=== PATIENT | male | born 1950 | race Caucasian/White ===

== ENCOUNTER → 2019-04-18 | Outpatient (CLI) | payer MEDICARE, BC, OTHER ==
[2019-04-18 17:02] LABS: Basophils # (A) 0.1 k/uL (0-0.2); Basophils % (A) 1 %; Eosinophils # (A) 0.8 k/uL (0-0.7); Eosinophils % (A) 7 %; HCT 34.5 % (39.0-53.0); HGB 11.1 gm/dL (13.0-17.5); Lymphocytes # (A) 1.6 k/uL (1.0-4.8); Lymphocytes % (A) 13 %; MCH 28.8 pg (25.0-35.0); MCHC 32.3 g/dL (31.0-37.0); MCV 89.3 fL (80.0-100.0); Monocytes # (A) 0.7 k/uL (0-1.0); Monocytes % (A) 5 %; Neutrophils # (A) 8.9 k/uL (1.3-7.7); Neutrophils % (A) 73 %; Platelet Count 429 k/uL (150-450); RBC 3.86 m/uL (4.30-5.90); RDW 14.7 % (11.5-15.5); WBC 12.3 k/uL (3.8-10.6)
[2019-04-18 17:08] LABS: African American GFR (CKD) >90 (>60 ml/min/1.73 sqM); Anion Gap 8 mmol/L; Blood Urea Nitrogen 23 mg/dL (9-20); Carbon Dioxide 29 mmol/L (22-30); Chloride 102 mmol/L (98-107); Potassium 4.9 mmol/L (3.5-5.1); Sodium 139 mmol/L (137-145)
== END | disposition home or self-care (01) ==
LOC: LABPAT 16:37
PROVIDERS: ATTEND Surgery
DX: Z01.812 Encounter for preprocedural laboratory examination (principal); I96 Gangrene, not elsewhere classified
CPT/HCPCS: 80051; 82565; 84520; 85025

== ENCOUNTER 2019-04-26 18:35 | Inpatient (IN) | payer MEDICARE, BC, OTHER ==
[2019-04-26] MEDS ORDERED: IPRATROPIUM-ALBUTEROL 3 ML NEB INHALATION STA (19:27)
[2019-04-26] MEDS ORDERED: SODIUM CHLORIDE 0.9% 1,000 ML IV STA (19:27)
[2019-04-26 19:37] LABS: Basophils # (A) 0.1 k/uL (0-0.2); Basophils % (A) 0 %; Eosinophils # (A) 0.5 k/uL (0-0.7); Eosinophils % (A) 4 %; HCT 32.8 % (39.0-53.0); HGB 11.2 gm/dL (13.0-17.5); Lymphocytes # (A) 1.4 k/uL (1.0-4.8); Lymphocytes % (A) 10 %; MCV 88.2 fL (80.0-100.0); Mean Platelet Volume 6.7; Monocytes # (A) 0.7 k/uL (0-1.0); Monocytes % (A) 6 %; Neutrophils # (A) 10.3 k/uL (1.3-7.7); Neutrophils % (A) 78 %; Platelet Count 504 k/uL (150-450); RBC 3.72 m/uL (4.30-5.90); RDW 14.1 % (11.5-15.5); WBC 13.2 k/uL (3.8-10.6)
[2019-04-26] MEDS ORDERED: ONDANSETRON 4 MG/2 ML VIAL IVP STA (19:37)
[2019-04-26] MEDS ORDERED: ONDANSETRON 4 MG/2 ML VIAL IVP PRN (19:37)
[2019-04-26] MEDS ORDERED: MORPHINE SULFATE 4 MG/ML SYRINGE IVP STA (19:37)
[2019-04-26] MEDS ORDERED: VANCOMYCIN IV PER PHARMACY 1 EACH MISC MISCELLANE PRN (19:37)
[2019-04-26] MEDS ORDERED: ASPIRIN 81 MG PO STA (19:38)
[2019-04-26] MEDS ORDERED: NITROGLYCERIN SL TABS 0.4 MG TAB SUBLINGUAL PRN (19:38)
[2019-04-26 19:46] LABS: ALT 24 U/L (21-72); AST 24 U/L (17-59); African American GFR (CKD) >90 (>60 ml/min/1.73 sqM); Albumin 3.8 g/dL (3.5-5.0); Alkaline Phosphatase 131 U/L (38-126); Anion Gap 12 mmol/L; Blood Urea Nitrogen 22 mg/dL (9-20); Calcium 9.1 mg/dL (8.4-10.2); Carbon Dioxide 27 mmol/L (22-30); Chloride 99 mmol/L (98-107); Glucose 108 mg/dL (74-99); Magnesium 2.1 mg/dL (1.6-2.3); Potassium 4.8 mmol/L (3.5-5.1); Sodium 138 mmol/L (137-145); Total Bilirubin 0.2 mg/dL (0.2-1.3); Total Protein 7.2 g/dL (6.3-8.2)
[2019-04-26] MEDS ORDERED: VANCOMYCIN 1,250 MG in SODIUM CHLORIDE 0.9% 250 ML IVPB STA (19:52)
--- NOTE | 2019-04-26 19:55 | XR ---
EXAMINATION TYPE: XR chest 2V DATE OF EXAM: 04/26/2019 COMPARISON: NONE HISTORY: Short of breath TECHNIQUE: Frontal and lateral views of the chest are obtained. FINDINGS: Heart is normal. Lungs are clear of consolidation. There are no hilar masses. Phrenic angl es are clear. There are chest leads. Thoracic aorta is atheromatous. IMPRESSION: No active cardiopulmonary disease. Normal heart.
--- NOTE | 2019-04-26 19:57 | ED ---
SOB HPI - General Chief Complaint: Shortness of Breath Stated Complaint: Diff Breathing Time Seen by Provider: 04/26/19 19:08 Source: patient, RN notes reviewed, old records reviewed Mode of arrival: wheelchair Limitations: physical limitation - History of Present Illness Initial Comments: This is a 68-year-old male the ER for evaluation ER for evaluation regards to multiple complaints, he is of some mild shortness of breath but that is improved with breathing treatment, patient has by EMS for right lower extremity pain, patient is significant right lower extremity wound history of known peripheral arterial disease and infection. Patient not on anorexia. Patient to follow up after surgery for amputation. Patient was scheduled for surgery yesterday. Patient was unable to cardiac. Now presenting for evaluation and possible further evaluation and treatment of right lower extremity MD Complaint: shortness of breath (Also c/o RLE pain, gangrene) -: week(s) Severity: mild Severity scale (1-10): 3 Quality: aching Consistency: constant Improves With: rest Worsens With: exertion, movement Known History Of: COPD Associated Symptoms: cough - Related Data Home Medications Medication Instructions Recorded Confirmed Allopurinol [Zyloprim] 100 mg PO DAILY 04/19/19 04/26/19 Atorvastatin [Lipitor] 40 mg PO HS 04/19/19 04/26/19 Folic Acid 1 mg PO DAILY 04/19/19 04/26/19 Labetalol [Trandate] 200 mg PO BID 04/19/19 04/26/19 Lisinopril [Zestril] 20 mg PO DAILY 04/19/19 04/26/19 Multivit-Min/FA/Lycopen/Lutein 1 tab PO DAILY 04/19/19 04/26/19 [Centrum Silver Men Tablet] NIFEdipine [NIFEdipine ER] 30 mg PO DAILY 04/19/19 04/26/19 Nystatin 100,000Unit/gm Cream 1 applic TOPICAL BID PRN 04/19/19 04/26/19 [Mycostatin Cream] Bacitracin Oint 1 applic TOPICAL DAILY 04/26/19 04/26/19 Triamcinolone 0.1% Ointment 1 applic TOPICAL BID 04/26/19 04/26/19 [Kenalog 0.1% Ointment] Allergies Allergy/AdvReac Type Severity Reaction Status Date / Time Penicillins AdvReac Diarrhea Verified 04/26/19 20:03 Review of Systems ROS Statement: Those systems with pertinent positive or pertinent negative responses have been documented in the HPI. ROS Other: All systems not noted in ROS Statement are negative. Past Medical History Past Medical History: CVA/TIA, Hypertension Additional Past Medical History / Comment(s): pvd, gout History of Any Multi-Drug Resistant Organisms: None Reported Past Surgical History: Heart Catheterization Additional Past Surgical History / Comment(s): rt aka, bunionectomy Past Psychological History: No Psychological Hx Reported Smoking Status: Former smoker Past Alcohol Use History: None Reported Past Drug Use History: None Reported General Exam Limitations: physical limitation General appearance: alert, in no apparent distress Head exam: Present: atraumatic, normocephalic, normal inspection Eye exam: Present: normal appearance, PERRL, EOMI. Absent: scleral icterus, conjunctival injection, periorbital swelling ENT exam: Present: normal exam, mucous membranes moist Neck exam: Present: normal inspection. Absent: tenderness, meningismus, lymphadenopathy Respiratory exam: Present: wheezes, accessory muscle use, decreased breath sounds, prolonged expiratory. Absent: respiratory distress, rales, rhonchi, stridor Cardiovascular Exam: Present: regular rate, normal rhythm, normal heart sounds. Absent: systolic murmur, diastolic murmur, rubs, gallop, clicks GI/Abdominal exam: Present: soft, normal bowel sounds. Absent: distended, tenderness, guarding, rebound, rigid Extremities exam: Present: normal inspection, full ROM, normal capillary refill, other (Lower extremity gangrene symptoms significant necrosis secondary to PAD of right foot). Absent: tenderness, pedal edema, joint swelling, calf tenderness Back exam: Present: normal inspection Neurological exam: Present: alert, oriented X3, CN II-XII intact Psychiatric exam: Present: normal affect, normal mood Skin exam: Present: warm, dry, intact, normal color. Absent: rash Course Vital Signs 04/26/19 04/26/19 04/26/19 18:36 19:21 19:57 Temperature 97.6 F Pulse Rate 66 85 Respiratory 20 18 16 Rate Blood Pressure 103/62 O2 Sat by Pulse 95 Oximetry 04/26/19 20:10 Temperature Pulse Rate 87 Respiratory 18 Rate Blood Pressure O2 Sat by Pulse Oximetry - Reevaluation(s) Reevaluation #1: 04/26/19 19:54 Medical record reviewed - Consultations Consultation #1: Spoke with Dr. Kumar rabago for admission Consultation #2: Spoke with Dr. Bojorquez aware of patient being in ER and admission for possible Sx, cardiac clearance Medical Decision Making - Medical Decision Making 68 male the ER for evaluation presented today for evaluation of right lower extremity gangrene and infection, not an antibiotics, will place her back on antibiotics, a patient also having significant shortness of breath given breathing treatments shortness of breath is improved, patient still feeling weak - Lab Data Result diagrams: 04/26/19 19:16 04/26/19 19:16 Lab Results 04/26/19 04/26/19 04/26/19 Range/Units 19:16 19:16 19:16 WBC 13.2 H (3.8-10.6) k/uL RBC 3.72 L (4.30-5.90) m/uL Hgb 11.2 L (13.0-17.5) gm/dL Hct 32.8 L (39.0-53.0) % MCV 88.2 (80.0-100.0) fL MCH 30.0 (25.0-35.0) pg MCHC 34.0 (31.0-37.0) g/dL RDW 14.1 (11.5-15.5) % Plt Count 504 H (150-450) k/uL Neutrophils % 78 % Lymphocytes % 10 % Monocytes % 6 % Eosinophils % 4 % Basophils % 0 % Neutrophils # 10.3 H (1.3-7.7) k/uL Lymphocytes # 1.4 (1.0-4.8) k/uL Monocytes # 0.7 (0-1.0) k/uL Eosinophils # 0.5 (0-0.7) k/uL Basophils # 0.1 (0-0.2) k/uL Sodium 138 (137-145) mmol/L Potassium 4.8 (3.5-5.1) mmol/L Chloride 99 (98-107) mmol/L Carbon Dioxide 27 (22-30) mmol/L Anion Gap 12 mmol/L BUN 22 H (9-20) mg/dL Creatinine 0.98 (0.66-1.25) mg/dL Est GFR (CKD-EPI)AfAm >90 (>60 ml/min/1.73 sqM) Est GFR (CKD-EPI)NonAf 79 (>60 ml/min/1.73 sqM) Glucose 108 H (74-99) mg/dL Calcium 9.1 (8.4-10.2) mg/dL Magnesium 2.1 (1.6-2.3) mg/dL Total Bilirubin 0.2 (0.2-1.3) mg/dL AST 24 (17-59) U/L ALT 24 (21-72) U/L Alkaline Phosphatase 131 H (38-126) U/L Troponin I (0.000-0.034) ng/mL NT-Pro-B Natriuret Pep 359 pg/mL Total Protein 7.2 (6.3-8.2) g/dL Albumin 3.8 (3.5-5.0) g/dL 04/26/19 Range/Units 19:16 WBC (3.8-10.6) k/uL RBC (4.30-5.90) m/uL Hgb (13.0-17.5) gm/dL Hct (39.0-53.0) % MCV (80.0-100.0) fL MCH (25.0-35.0) pg MCHC (31.0-37.0) g/dL RDW (11.5-15.5) % Plt Count (150-450) k/uL Neutrophils % % Lymphocytes % % Monocytes % % Eosinophils % % Basophils % % Neutrophils # (1.3-7.7) k/uL Lymphocytes # (1.0-4.8) k/uL Monocytes # (0-1.0) k/uL Eosinophils # (0-0.7) k/uL Basophils # (0-0.2) k/uL Sodium (137-145) mmol/L Potassium (3.5-5.1) mmol/L Chloride (98-107) mmol/L Carbon Dioxide (22-30) mmol/L Anion Gap mmol/L BUN (9-20) mg/dL Creatinine (0.66-1.25) mg/dL Est GFR (CKD-EPI)AfAm (>60 ml/min/1.73 sqM) Est GFR (CKD-EPI)NonAf (>60 ml/min/1.73 sqM) Glucose (74-99) mg/dL Calcium (8.4-10.2) mg/dL Magnesium (1.6-2.3) mg/dL Total Bilirubin (0.2-1.3) mg/dL AST (17-59) U/L ALT (21-72) U/L Alkaline Phosphatase (38-126) U/L Troponin I <0.012 (0.000-0.034) ng/mL NT-Pro-B Natriuret Pep pg/mL Total Protein (6.3-8.2) g/dL Albumin (3.5-5.0) g/dL Disposition Clinical Impression: Acute exacerbation of chronic obstructive pulmonary disease, 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
--- NOTE | 2019-04-26 20:02 | XR ---
EXAMINATION TYPE: XR foot complete RT DATE OF EXAM: 04/26/2019 COMPARISON: NONE HISTORY: Pain and swelling TECHNIQUE: 3 views FINDINGS: There is previous surgery at the first metatarsal head. I see no fracture nor dislocation. There is flexion deformity of the second toe. There are no erosions. I see no focal bone destruction. IMPRESSION: Flexion deformity. Previous surgery. No sign of osteomyelitis.
[2019-04-26] MEDS: IPRATROPIUM-ALBUTEROL 3 ML NEB INHALATION SCH (20:25)
[2019-04-26] MEDS: SODIUM CHLORIDE 0.9% 1,000 ML IV SCH (20:30)
[2019-04-26 20:46] LABS: INR 0.9 (<1.2); Partial Thromboplastin Time 29.4 sec (22.0-30.0); Prothrombin Time 9.6 sec (9.0-12.0)
[2019-04-27] MEDS: IPRATROPIUM-ALBUTEROL 3 ML NEB INHALATION SCH ×3 (08:16→20:20)
[2019-04-27] MEDS: VANCOMYCIN 1,250 MG in SODIUM CHLORIDE 0.9% 250 ML IVPB SCH ×2 (09:15→20:05)
[2019-04-27] MEDS: ASPIRIN 325 MG TAB PO SCH (09:15)
[2019-04-27] MEDS: ENOXAPARIN 40 MG/0.4 ML SYRINGE SQ SCH (09:16)
[2019-04-27] MEDS: SODIUM CHLORIDE 0.9% 1,000 ML IV SCH ×2 (09:16)
[2019-04-27] MEDS: NIFEdipine XL 30 MG TAB.ER.24 PO SCH (11:33)
[2019-04-27] MEDS: LABETALOL 200 MG TAB PO SCH ×2 (11:33→21:12)
[2019-04-27] MEDS: LISINOPRIL 20 MG TAB PO SCH (11:33)
--- NOTE | 2019-04-27 12:15 | P.HPIM ---
History of Present Illness H&P Date: 04/27/19 Chief Complaint: Shortness of breath 68-year-old male the ER for evaluation ER for evaluation regards to multiple complaints, he is of some mild shortness of breath but that is improved with breathing treatment, patient has by EMS for right lower extremity pain, patient is significant right lower extremity wound history of known peripheral arterial disease and infection. Patient not on anorexia. Patient to follow up after surgery for amputation. Patient was scheduled for surgery yesterday. Patient was unable to cardiac. Now presenting for evaluation and possible further evaluation and treatment of right lower extremity Workup in ED was significant for elevated white blood count of 13.2; slight elevation in BUN of 22 with normal creatinine; troponin is negative with a BNP of 359 Patient is admitted to hospital with infection and gangrene of right lower extremity and acute exacerbation of COPD Review of Systems Constitutional: Denies chills, Denies fever Eyes: denies blurred vision, denies loss of vision Ears, nose, mouth and throat: Denies epistaxis Cardiovascular: Reports shortness of breath, Denies chest pain Respiratory: Denies cough with sputum Gastrointestinal: Denies abdominal pain, Denies nausea, Denies vomiting Genitourinary: Denies dysuria, Denies hematuria Musculoskeletal: Denies gait dysfunction Integumentary: Denies change in hair/nails, Denies darkening of skin Neurological: Denies ataxia, Denies confusion, Denies double vision Past Medical History Past Medical History: CVA/TIA, Hypertension Additional Past Medical History / Comment(s): pvd, gout History of Any Multi-Drug Resistant Organisms: None Reported Past Surgical History: Heart Catheterization Additional Past Surgical History / Comment(s): left aka, right bunionectomy Past Anesthesia/Blood Transfusion Reactions: No Reported Reaction Past Psychological History: No Psychological Hx Reported Smoking Status: Former smoker Past Alcohol Use History: None Reported Past Drug Use History: None Reported - Past Family History Father Family Medical History: Cancer Additional Family Medical History / Comment(s): colon CA Medications and Allergies Home Medications Medication Instructions Recorded Confirmed Type Allopurinol [Zyloprim] 100 mg PO DAILY 04/19/19 04/26/19 History Atorvastatin [Lipitor] 40 mg PO HS 04/19/19 04/26/19 History Folic Acid 1 mg PO DAILY 04/19/19 04/26/19 History Labetalol [Trandate] 200 mg PO BID 04/19/19 04/26/19 History Lisinopril [Zestril] 20 mg PO DAILY 04/19/19 04/26/19 History Multivit-Min/FA/Lycopen/Lutein 1 tab PO DAILY 04/19/19 04/26/19 History [Centrum Silver Men Tablet] NIFEdipine [NIFEdipine ER] 30 mg PO DAILY 04/19/19 04/26/19 History Nystatin 100,000Unit/gm Cream 1 applic TOPICAL BID PRN 04/19/19 04/26/19 History [Mycostatin Cream] Bacitracin Oint 1 applic TOPICAL DAILY 04/26/19 04/26/19 History Triamcinolone 0.1% Ointment 1 applic TOPICAL BID 04/26/19 04/26/19 History [Kenalog 0.1% Ointment] Allergies Allergy/AdvReac Type Severity Reaction Status Date / Time Penicillins AdvReac Diarrhea Verified 04/26/19 20:03 Physical Exam Vitals: Vital Signs Temp Pulse Pulse Pulse Resp BP BP 04/27/19 05:00 97.9 F 102 H 18 129/75 04/27/19 00:00 20 04/26/19 22:00 97.5 F L 91 20 96/65 04/26/19 21:30 84 18 112/76 04/26/19 20:34 85 18 126/69 04/26/19 20:10 87 18 04/26/19 19:57 85 16 04/26/19 19:21 18 04/26/19 18:36 97.6 F 66 20 103/62 Pulse Ox 04/27/19 05:00 95 04/27/19 00:00 04/26/19 22:00 98 04/26/19 21:30 97 04/26/19 20:34 97 04/26/19 20:10 04/26/19 19:57 04/26/19 19:21 04/26/19 18:36 95 Intake and Output 04/26/19 04/27/19 04/27/19 22:59 06:59 14:59 Intake Total 650 Output Total 1475 Balance -825 Intake: Intake, IV Titration 650 Amount Sodium Chloride 0.9% 1, 400 000 ml @ 100 mls/hr IV . Q10H [facility] Rx#:[id number] Vancomycin 1,250 mg In 250 Sodium Chloride 0.9% 250 ml @ 125 mls/hr IVPB ONCE STA Rx#:[id number] Output: Urine 1475 Other: Voiding Method Urinal Weight 55.792 kg Limitations: physical limitation General appearance: alert, in no apparent distress Head exam: Present: atraumatic, normocephalic, normal inspection Eye exam: Present: normal appearance, PERRL, EOMI. Absent: scleral icterus, conjunctival injection, periorbital swelling ENT exam: Present: normal exam, mucous membranes moist Neck exam: Present: normal inspection. Absent: tenderness, meningismus, lymphadenopathy Respiratory exam: Present: wheezes, accessory muscle use, decreased breath sounds, prolonged expiratory. Absent: respiratory distress, rales, rhonchi, stridor Cardiovascular Exam: Present: regular rate, normal rhythm, normal heart sounds. Absent: systolic murmur, diastolic murmur, rubs, gallop, clicks GI/Abdominal exam: Present: soft, normal bowel sounds. Absent: distended, tenderness, guarding, rebound, rigid Extremities exam: Present: normal inspection, full ROM, normal capillary refill, other (Lower extremity gangrene symptoms significant necrosis secondary to PAD of right foot). Absent: tenderness, pedal edema, joint swelling, calf tenderness Back exam: Present: normal inspection Neurological exam: Present: alert, oriented X3, CN II-XII intact Psychiatric exam: Present: normal affect, normal mood Skin exam: Present: warm, dry, intact, normal color. Absent: rash Results CBC & Chem 7: 04/26/19 19:16 04/26/19 19:16 Labs: Abnormal Lab Results - Last 24 Hours (Table) 04/26/19 04/26/19 Range/Units 19:16 19:16 WBC 13.2 H (3.8-10.6) k/uL RBC 3.72 L (4.30-5.90) m/uL Hgb 11.2 L (13.0-17.5) gm/dL Hct 32.8 L (39.0-53.0) % Plt Count 504 H (150-450) k/uL Neutrophils # 10.3 H (1.3-7.7) k/uL BUN 22 H (9-20) mg/dL Glucose 108 H (74-99) mg/dL Alkaline Phosphatase 131 H (38-126) U/L Thrombosis Risk Factor Assmnt - Choose All That Apply Any of the Below Risk Factors Present?: No Other Risk Factors: Yes Each Risk Factor Represents 2 Points: Age 61-74 years, Major surgery Thrombosis Risk Factor Assessment Total Risk Factor Score: 4 Thrombosis Risk Factor Assessment Level: Moderate Risk Assessment and Plan Assessment: 1. Infection/gangrene right lower extremity - Patient is started on IV Rocephin and vancomycin from ED; we will continue with current antibiotic therapy - Consult vascular surgery for further recommendations - Cardiology is consulted for cardiac clearance for pending surgery 2. Acute exacerbation COPD - DuoNeb nebulizer treatments 3 times a day and when necessary - Prednisone 40 mg by mouth twice a day 3. Mild renal insufficiency; slow IV fluid hydration in form of normal saline at a rate of 100 mL an hour; monitor strict CAIO's, daily weights, renal function and electrolytes; avoid nephrotoxins and hypotension 4. Hypertension; continue home dose of labetalol 200 mg twice a day and lisinopril 20 mg daily; Procardia XL 30 mg daily 5. Hyperlipidemia; atorvastatin 40 mg by mouth daily at bedtime 6. DVT prophylaxis; subcu Lovenox CODE STATUS; full code Time with Patient: Greater than 30
--- NOTE | 2019-04-27 12:24 | P.CRDCN ---
History of Present Illness Consult date: 04/27/19 History of present illness: This is a 68-year-old gentleman with history of of hypertension, COPD, and peripheral vascular disease who was admitted through the emergency room with complaints of increasing shortness of breath and also pain and ulceration of the right lower extremity. This patient has severe peripheral vascular disease and was seen in our office a few months ago. Patient was sent to vascular surgeon at the time for further evaluation of his severe peripheral vascular disease and gangrene. Apparently, he went for a second opinion to [facility] and was seen by cardiologists. He claimed that he had a stress test and further evaluation by bus and rail operator in [place]. Currently he is under the care of and is waiting to have surgical intervention for the gangrenous right toe. A cardiology clearance is requested. Echo is done in this hospital already. We tried to get information from previous evaluation including report on the stress test. Depending upon the results of those tests, further recommendation will be made. Patient was mildly short of breath on admission but currently seems to be stable. Denies any chest pain. However given his risk factor profile, underlying ischemic heart disease cannot be excluded. Review of Systems As per the chart Past Medical History Past Medical History: CVA/TIA, Hypertension Additional Past Medical History / Comment(s): pvd, gout History of Any Multi-Drug Resistant Organisms: None Reported Past Surgical History: Heart Catheterization Additional Past Surgical History / Comment(s): left aka, right bunionectomy Past Anesthesia/Blood Transfusion Reactions: No Reported Reaction Past Psychological History: No Psychological Hx Reported Smoking Status: Former smoker Past Alcohol Use History: None Reported Past Drug Use History: None Reported - Past Family History Father Family Medical History: Cancer Additional Family Medical History / Comment(s): colon CA Medications and Allergies Home Medications Medication Instructions Recorded Confirmed Type Allopurinol [Zyloprim] 100 mg PO DAILY 04/19/19 04/26/19 History Atorvastatin [Lipitor] 40 mg PO HS 04/19/19 04/26/19 History Folic Acid 1 mg PO DAILY 04/19/19 04/26/19 History Labetalol [Trandate] 200 mg PO BID 04/19/19 04/26/19 History Lisinopril [Zestril] 20 mg PO DAILY 04/19/19 04/26/19 History Multivit-Min/FA/Lycopen/Lutein 1 tab PO DAILY 04/19/19 04/26/19 History [Centrum Silver Men Tablet] NIFEdipine [NIFEdipine ER] 30 mg PO DAILY 04/19/19 04/26/19 History Nystatin 100,000Unit/gm Cream 1 applic TOPICAL BID PRN 04/19/19 04/26/19 History [Mycostatin Cream] Bacitracin Oint 1 applic TOPICAL DAILY 04/26/19 04/26/19 History Triamcinolone 0.1% Ointment 1 applic TOPICAL BID 04/26/19 04/26/19 History [Kenalog 0.1% Ointment] Allergies Allergy/AdvReac Type Severity Reaction Status Date / Time Penicillins AdvReac Diarrhea Verified 04/26/19 20:03 Physical Exam Vitals: Vital Signs Temp Pulse Pulse Pulse Resp BP BP 04/27/19 11:53 82 04/27/19 11:44 86 04/27/19 08:26 84 04/27/19 08:19 88 04/27/19 05:00 97.9 F 102 H 18 129/75 04/27/19 00:00 20 04/26/19 22:00 97.5 F L 91 20 96/65 04/26/19 21:30 84 18 112/76 04/26/19 20:34 85 18 126/69 04/26/19 20:10 87 18 04/26/19 19:57 85 16 04/26/19 19:21 18 04/26/19 18:36 97.6 F 66 20 103/62 Pulse Ox 04/27/19 11:53 04/27/19 11:44 04/27/19 08:26 04/27/19 08:19 04/27/19 05:00 95 04/27/19 00:00 04/26/19 22:00 98 04/26/19 21:30 97 04/26/19 20:34 97 04/26/19 20:10 04/26/19 19:57 04/26/19 19:21 04/26/19 18:36 95 Intake and Output 04/26/19 04/27/19 04/27/19 22:59 06:59 14:59 Intake Total 650 Output Total 1475 Balance -825 Intake: Intake, IV Titration 650 Amount Sodium Chloride 0.9% 1, 400 000 ml @ 100 mls/hr IV . Q10H [facility] Rx#:[id number] Vancomycin 1,250 mg In 250 Sodium Chloride 0.9% 250 ml @ 125 mls/hr IVPB ONCE STA Rx#:[id number] Output: Urine 1475 Other: Voiding Method Urinal Urinal Weight 55.792 kg GENERAL EXAM: Patient is alert and oriented and doesn't appear to be in any acute distress HEENT: Normocephalic. Normal reaction of pupils, equal size, normal range of extraocular motion. No erythema or exudates in the throat. NECK: No masses, no nuchal rigidity. CHEST: No chest wall deformity. LUNGS: Diminished air exchange bilaterally HEART: S1 and S2 normal with no audible mumurs or gallops. Regular rhythm, femorals equal on both sides.. ABDOMEN: No hepatosplenomegaly, normal bowel sounds, no guarding or rigidity. SKIN: No rashes CENTRAL NERVOUS SYSTEM: No focal deficits. EXTREMITIES: Gangrenous right toe. Below-knee amputation on the left side Results 04/26/19 19:16 04/26/19 19:16 Cardiac Enzymes 04/26/19 04/26/19 Range/Units 19:16 19:16 AST 24 (17-59) U/L Troponin I <0.012 (0.000-0.034) ng/mL Coagulation 04/26/19 Range/Units 19:16 PT 9.6 (9.0-12.0) sec APTT 29.4 (22.0-30.0) sec CBC 04/26/19 Range/Units 19:16 WBC 13.2 H (3.8-10.6) k/uL RBC 3.72 L (4.30-5.90) m/uL Hgb 11.2 L (13.0-17.5) gm/dL Hct 32.8 L (39.0-53.0) % Plt Count 504 H (150-450) k/uL Comprehensive Metabolic Panel 04/26/19 Range/Units 19:16 Sodium 138 (137-145) mmol/L Potassium 4.8 (3.5-5.1) mmol/L Chloride 99 (98-107) mmol/L Carbon Dioxide 27 (22-30) mmol/L BUN 22 H (9-20) mg/dL Creatinine 0.98 (0.66-1.25) mg/dL Glucose 108 H (74-99) mg/dL Calcium 9.1 (8.4-10.2) mg/dL AST 24 (17-59) U/L ALT 24 (21-72) U/L Alkaline Phosphatase 131 H (38-126) U/L Total Protein 7.2 (6.3-8.2) g/dL Albumin 3.8 (3.5-5.0) g/dL Current Medications Generic Name Dose Route Start Last Admin Trade Name Freq PRN Reason Stop Dose Admin Albuterol/Ipratropium 3 ml 04/26/19 20:00 04/27/19 11:42 Duoneb 0.5 Mg-3 Mg/3 Ml Soln INHALATION 3 ml RT-TID [facility] Administration Allopurinol 100 mg 04/28/19 09:00 Zyloprim PO DAILY J[facility] Aspirin 325 mg 04/27/19 09:00 04/27/19 09:15 Aspirin PO 325 mg DAILY [facility] Administration Atorvastatin Calcium 40 mg 04/27/19 21:00 Lipitor PO HS [facility] Enoxaparin Sodium 40 mg 04/27/19 09:00 04/27/19 09:16 Lovenox SQ 40 mg DAILY [facility] Administration Folic Acid 1 mg 04/28/19 09:00 Folic Acid PO DAILY [facility] Ceftriaxone Sodium 1 gm/ 50 mls @ 100 mls/hr 04/27/19 09:00 04/27/19 11:33 Sodium Chloride IVPB 100 mls/hr Q24HR [facility] Administration Sodium Chloride 1,000 mls @ 100 mls/hr 04/26/19 19:45 04/27/19 09:16 Saline 0.9% IV 100 mls/hr .Q10H [facility] Administration Vancomycin HCl 1,250 mg/ 250 mls @ 125 mls/hr 04/27/19 08:00 04/27/19 09:15 Sodium Chloride IVPB 125 mls/hr Q12H [facility] Administration Labetalol HCl 200 mg 04/27/19 11:00 04/27/19 11:33 Trandate PO 200 mg BID [facility] Administration Lisinopril 20 mg 04/27/19 11:00 04/27/19 11:33 Zestril PO 20 mg DAILY [facility] Administration Miscellaneous Information 0 each 04/28/19 07:00 Vancomycin Trough Due MISCELLANE 04/28/19 07:01 DIRECTED ONE Morphine Sulfate 4 mg 04/26/19 19:37 Morphine Sulfate (Inj) IVP Q4HR PRN Pain Multivitamins 1 each 04/28/19 09:00 Theragran PO DAILY [facility] Nifedipine 30 mg 04/27/19 11:00 04/27/19 11:33 Procardia Xl PO 30 mg DAILY [facility] Administration Nitroglycerin 0.4 mg 04/26/19 19:38 Nitrostat SUBLINGUAL Q5M PRN Chest Pain Ondansetron HCl 4 mg 04/26/19 19:37 Zofran IVP Q6HR PRN Nausea And Vomiting Intake and Output 04/26/19 04/27/19 04/27/19 22:59 06:59 14:59 Intake Total 650 Output Total 1475 Balance -825 Intake: Intake, IV Titration 650 Amount Sodium Chloride 0.9% 1, 400 000 ml @ 100 mls/hr IV . Q10H [facility] Rx#:[id number] Vancomycin 1,250 mg In 250 Sodium Chloride 0.9% 250 ml @ 125 mls/hr IVPB ONCE STA Rx#:[id number] Output: Urine 1475 Other: Voiding Method Urinal Urinal Weight 55.792 kg 04/26/19 19:16 04/26/19 19:16 EKG Interpretations (text) Sinus rhythm Assessment and Plan (1) Pre-op evaluation Current Visit: Yes Status: Acute Code(s): Z01.818 - ENCOUNTER FOR OTHER PREPROCEDURAL EXAMINATION SNOMED Code(s): 991150650 (2) Peripheral vascular disease Current Visit: Yes Status: Acute Code(s): I73.9 - PERIPHERAL VASCULAR DISEASE, UNSPECIFIED SNOMED Code(s): 994955026 (3) Acute exacerbation of chronic obstructive pulmonary disease Current Visit: Yes Status: Acute Code(s): J44.1 - CHRONIC OBSTRUCTIVE PULMONARY DISEASE W (ACUTE) EXACERBATION SNOMED Code(s): 717037443 (4) Gangrene of right lower extremity due to atherosclerosis Current Visit: Yes Status: Acute Code(s): I96 - GANGRENE, NOT ELSEWHERE CLASSIFIED; I70.201 - UNSP ATHSCL [place] ARTERIES OF EXTREMITIES, RIGHT LEG SNOMED Code(s): 79841156661487312 Plan: We'll look at the echocardiogram. We'll try to get the report on the Lexiscan stress test from [facility]. If not, we'll may have to repeat the stress test in the hospital here. Meanwhile, continue current medical therapy
--- NOTE | 2019-04-27 15:52 | ECHOF ---
Referral Reason:sob MEASUREMENTS -------- HEIGHT: 170.2 cm WEIGHT: 55.8 kg BP: 129/75 RVIDd: 2.8 cm (< 3.3) IVSd: 1.3 cm (0.6 - 1.1) LVIDd: 4.4 cm (3.9 - 5.3) LVPWd: 1.3 cm (0.6 - 1.1) IVSs: 1.7 cm LVIDs: 2.6 cm LVPWs: 1.5 cm LA Diam: 3.6 cm (2.7 - 3.8) LAESV Index (A-L): 21.14 ml/m Ao Diam: 2.8 cm (2.0 - 3.7) AV Cusp: 1.8 cm (1.5 - 2.6) MV EXCURSION: 14.987 mm (> 18.000) MV EF SLOPE: 149 mm/s (70 - 150) EPSS: 0.7 cm MV E Cody: 1.73 m/s MV DecT: 134 ms MV A Cody: 0.83 m/s MV E/A Ratio: 2.08 FINDINGS -------- Resting tachycardia (HR>100bpm). This was a technically adequate study. The left ventricular size is normal. There is mild concentric left ventricular hypertrophy. Overa ll left ventricular systolic function is normal with, an EF between 65 - 70 %. The right ventricle is normal in size. Normal LA size by volume 22+/-6 ml/m2. The right atrium is normal in size. Interatrial and interventricular septum intact. There is mild aortic valve sclerosis. The mitral valve leaflets are mildly thickened. Mild mitral annular calcification present. Mild m itral regurgitation is present. The tricuspid valve appears structurally normal. The pulmonic valve was not well visualized. The aortic root size is normal. Normal inferior vena cava with normal inspiratory collapse consistent with estimated right atrial pre ssure of 5 mmHg. There is no pericardial effusion. CONCLUSIONS -------- 1. Resting tachycardia (HR>100bpm). 2. This was a technically adequate study. 3. The left ventricular size is normal. 4. There is mild concentric left ventricular hypertrophy. 5. Overall left ventricular systolic function is normal with, an EF between 65 - 70 %. 6. The right ventricle is normal in size. 7. Normal LA size by volume 22+/-6 ml/m2. 8. The right atrium is normal in size. 9. Interatrial and interventricular septum intact. 10. There is mild aortic valve sclerosis. 11. The mitral valve leaflets are mildly thickened. 12. Mild mitral annular calcification present. 13. Mild mitral regurgitation is present. 14. The tricuspid valve appears structurally normal. 15. The pulmonic valve was not well visualized. 16. The aortic root size is normal. 17. Normal inferior vena cava with normal inspiratory collapse consistent with estimated right atrial pressure of 5 mmHg. 18. There is no pericardial effusion. DEPUTY COURT CLERK: Esha Inman RDCS
[2019-04-27] MEDS: ATORVASTATIN 40 MG TAB PO SCH (21:12)
[2019-04-28] MEDS: SODIUM CHLORIDE 0.9% 1,000 ML IV SCH ×2 (02:30→09:02)
[2019-04-28] MEDS ORDERED: VANCOMYCIN TROUGH DUE 1 EACH MISC MISCELLANE ONE (07:00)
[2019-04-28 07:29] LABS: Basophils % (A) 0 %; Eosinophils # (A) 0.4 k/uL (0-0.7); Eosinophils % (A) 5 %; HCT 30.4 % (39.0-53.0); HGB 9.9 gm/dL (13.0-17.5); Lymphocytes # (A) 1.2 k/uL (1.0-4.8); Lymphocytes % (A) 13 %; MCH 28.9 pg (25.0-35.0); MCHC 32.4 g/dL (31.0-37.0); MCV 89.1 fL (80.0-100.0); Mean Platelet Volume 6.8; Monocytes # (A) 0.6 k/uL (0-1.0); Monocytes % (A) 6 %; Neutrophils # (A) 6.8 k/uL (1.3-7.7); Neutrophils % (A) 74 %; Platelet Count 423 k/uL (150-450); RBC 3.41 m/uL (4.30-5.90); RDW 14.1 % (11.5-15.5); WBC 9.2 k/uL (3.8-10.6)
[2019-04-28 07:36] LABS: African American GFR (CKD) >90 (>60 ml/min/1.73 sqM); Anion Gap 7 mmol/L; Blood Urea Nitrogen 10 mg/dL (9-20); Calcium 8.8 mg/dL (8.4-10.2); Carbon Dioxide 26 mmol/L (22-30); Chloride 103 mmol/L (98-107); Glucose 87 mg/dL (74-99); Potassium 4.1 mmol/L (3.5-5.1); Sodium 136 mmol/L (137-145)
[2019-04-28] MEDS: FOLIC ACID 1 MG TAB PO SCH (08:57)
[2019-04-28] MEDS: VANCOMYCIN 1,250 MG in SODIUM CHLORIDE 0.9% 250 ML IVPB SCH ×2 (08:57→20:23)
[2019-04-28] MEDS: NIFEdipine XL 30 MG TAB.ER.24 PO SCH (09:00)
[2019-04-28] MEDS: LABETALOL 200 MG TAB PO SCH ×2 (09:00→20:23)
[2019-04-28] MEDS: ASPIRIN 325 MG TAB PO SCH (09:00)
[2019-04-28] MEDS: ALLOPURINOL 100 MG TAB PO SCH (09:00)
[2019-04-28] MEDS: MULTIVITAMINS, THERA 1 EACH TAB PO SCH (09:00)
[2019-04-28] MEDS: LISINOPRIL 20 MG TAB PO SCH (09:00)
[2019-04-28] MEDS: ENOXAPARIN 40 MG/0.4 ML SYRINGE SQ SCH (09:01)
[2019-04-28] MEDS: PANTOPRAZOLE 40 MG TABLET PO SCH ×2 (09:02→17:23)
[2019-04-28] MEDS: IPRATROPIUM-ALBUTEROL 3 ML NEB INHALATION SCH ×3 (09:09→20:41)
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
--- NOTE | 2019-04-28 10:47 | P.PN ---
Subjective Progress Note Date: 04/28/19 Principal diagnosis: Gangrene/infection right lower extremity Acute exacerbation COPD Mild renal injury 68-year-old male with history of severe peripheral vascular disease. Undergone extensive workup at an outside facility. This workup led to the patient eventually needing a left xgjeu-niv-evei amputation. 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 The patient had been tentatively scheduled for transmetatarsal amputation of the right foot to be performed on of last week. This procedure was postponed due to concern of inadequate cardiac evaluation. 04/28/2019 Patient is seen and evaluated in room at bedside; patient denies any specific complaints at this time Vital signs are reviewed and stable with a temperature of 97.9, pulse 80, respiration 18 and blood pressure 111/63 with SpO2 of 97% on room air Lab review shows CBC with white blood count of 9.2 which is improved from 13.2 yesterday; patient has hemoglobin dropped from 11.2 yesterday down to 9.9; sodium 136, potassium 4.1 Marked anemia; patient is currently on aspirin and Lovenox; we will order stool occult blood along with monitoring hemoglobin and hematocrit every 8 hours; start patient on twice a day dosing of oral Protonix; we will recommend discontinuing Lovenox if stool occult blood comes back positive at hemoglobin continues to drop Patient is evaluated by cardiology and recommended 2-D echo; patient's stress test results from outside facility has been requested; per cardiology patient might need to undergo repeat stress testing if results are not available or significant abnormality on echocardiogram Objective - Vital Signs Vital signs: Vital Signs Temp 97.9 F 04/28/19 04:45 Pulse 80 04/28/19 04:45 Resp 18 04/28/19 04:45 BP 111/63 04/28/19 04:45 Pulse Ox 97 04/28/19 04:45 Intake & Output 04/27/19 04/28/19 04/28/19 18:59 06:59 18:59 Intake Total 850 1150 Output Total 1200 Balance 850 -50 Intake: Intake, IV Titration 850 1150 Amount Sodium Chloride 0.9% 1, 550 900 000 ml @ 100 mls/hr IV . Q10H [facility] Rx#:[id number] Vancomycin 1,250 mg In 250 250 Sodium Chloride 0.9% 250 ml @ 125 mls/hr IVPB Q12H [facility] Rx#:[id number] cefTRIAXone 1 gm In 50 Sodium Chloride 0.9% 50 ml @ 100 mls/hr IVPB Q24HR [facility] Rx#:[id number] Output: Urine 1200 Other: Voiding Method Urinal Urinal - Exam General appearance: alert, in no apparent distress Head exam: Present: atraumatic, normocephalic, normal inspection Eye exam: Present: normal appearance, PERRL, EOMI. Absent: scleral icterus, conjunctival injection, periorbital swelling ENT exam: Present: normal exam, mucous membranes moist Neck exam: Present: normal inspection. Absent: tenderness, meningismus, lymphadenopathy Respiratory exam: Present: wheezes, accessory muscle use, decreased breath sounds, prolonged expiratory. Absent: respiratory distress, rales, rhonchi, stridor Cardiovascular Exam: Present: regular rate, normal rhythm, normal heart sounds. Absent: systolic murmur, diastolic murmur, rubs, gallop, clicks GI/Abdominal exam: Present: soft, normal bowel sounds. Absent: distended, tenderness, guarding, rebound, rigid Extremities exam: Present: normal inspection, full ROM, normal capillary refill, other (Lower extremity gangrene symptoms significant necrosis secondary to PAD of right foot). Absent: tenderness, pedal edema, joint swelling, calf tendern ess Back exam: Present: normal inspection Neurological exam: Present: alert, oriented X3, CN II-XII intact - Labs CBC & Chem 7: 04/28/19 07:05 04/28/19 07:05 Labs: Abnormal Lab Results - Last 24 Hours (Table) 04/28/19 04/28/19 Range/Units 07:05 07:05 RBC 3.41 L (4.30-5.90) m/uL Hgb 9.9 L (13.0-17.5) gm/dL Hct 30.4 L (39.0-53.0) % Sodium 136 L (137-145) mmol/L Creatinine 0.65 L (0.66-1.25) mg/dL Microbiology - Last 24 Hours (Table) 04/26/19 20:05 Blood Culture - Preliminary Blood No Growth after 24 hours Assessment and Plan Assessment: 1. Infection/gangrene right lower extremity - Patient is started on IV Rocephin and vancomycin from ED; we will continue with current antibiotic therapy - Consult vascular surgery for further recommendations - Cardiology is consulted for cardiac clearance for pending surgery 2. Acute exacerbation COPD - DuoNeb nebulizer treatments 3 times a day and when necessary - Prednisone 40 mg by mouth twice a day 3. Mild renal insufficiency; slow IV fluid hydration in form of normal saline at a rate of 100 mL an hour; monitor strict CAIO's, daily weights, renal functi on and electrolytes; avoid nephrotoxins and hypotension 4. Hypertension; continue home dose of labetalol 200 mg twice a day and lisinopril 20 mg daily; Procardia XL 30 mg daily 5. Hyperlipidemia; atorvastatin 40 mg by mouth daily at bedtime 6. DVT prophylaxis; subcu Lovenox CODE STATUS; full code Time with Patient: Greater than 30
[2019-04-28 15:07] LABS: Basophils % (A) 0 %; Eosinophils # (A) 0.4 k/uL (0-0.7); Eosinophils % (A) 5 %; HCT 30.8 % (39.0-53.0); HGB 9.9 gm/dL (13.0-17.5); Lymphocytes # (A) 1.1 k/uL (1.0-4.8); Lymphocytes % (A) 13 %; MCH 28.6 pg (25.0-35.0); MCV 89.5 fL (80.0-100.0); Mean Platelet Volume 7.1; Monocytes # (A) 0.5 k/uL (0-1.0); Monocytes % (A) 6 %; Neutrophils # (A) 6.3 k/uL (1.3-7.7); Neutrophils % (A) 74 %; Platelet Count 424 k/uL (150-450); RBC 3.45 m/uL (4.30-5.90); RDW 14.1 % (11.5-15.5); WBC 8.4 k/uL (3.8-10.6)
[2019-04-28] MEDS: ATORVASTATIN 40 MG TAB PO SCH (20:23)
[2019-04-29] MEDS: MORPHINE SULFATE 4 MG/ML SYRINGE IVP PRN (02:02)
[2019-04-29] MEDS: ASPIRIN 325 MG TAB PO SCH ×2 (08:14→10:22)
[2019-04-29] MEDS: FOLIC ACID 1 MG TAB PO SCH (08:14)
[2019-04-29] MEDS: MULTIVITAMINS, THERA 1 EACH TAB PO SCH (08:14)
[2019-04-29] MEDS: ALLOPURINOL 100 MG TAB PO SCH (08:15)
[2019-04-29] MEDS: LISINOPRIL 20 MG TAB PO SCH (08:15)
[2019-04-29] MEDS: ENOXAPARIN 40 MG/0.4 ML SYRINGE SQ SCH ×2 (08:15→10:23)
[2019-04-29] MEDS: PANTOPRAZOLE 40 MG TABLET PO SCH ×2 (08:15→17:43)
[2019-04-29] MEDS: SODIUM CHLORIDE 0.9% 1,000 ML IV SCH ×3 (08:33→17:44)
[2019-04-29] MEDS: IPRATROPIUM-ALBUTEROL 3 ML NEB INHALATION SCH ×3 (09:08→19:09)
[2019-04-29] MEDS: VANCOMYCIN 1,250 MG in SODIUM CHLORIDE 0.9% 250 ML IVPB SCH ×2 (09:21→20:57)
[2019-04-29 09:49] LABS: Basophils # (A) 0.1 k/uL (0-0.2); Basophils % (A) 1 %; Eosinophils # (A) 0.5 k/uL (0-0.7); Eosinophils % (A) 6 %; HCT 30.9 % (39.0-53.0); Lymphocytes # (A) 1.1 k/uL (1.0-4.8); Lymphocytes % (A) 13 %; MCH 29.1 pg (25.0-35.0); MCHC 32.3 g/dL (31.0-37.0); MCV 90.1 fL (80.0-100.0); Mean Platelet Volume 7.2; Monocytes # (A) 0.5 k/uL (0-1.0); Monocytes % (A) 6 %; Neutrophils # (A) 6.3 k/uL (1.3-7.7); Neutrophils % (A) 73 %; Platelet Count 445 k/uL (150-450); RBC 3.43 m/uL (4.30-5.90); RDW 14.3 % (11.5-15.5); WBC 8.6 k/uL (3.8-10.6)
--- NOTE | 2019-04-29 10:01 | PN ---
PROGRESS NOTE Mr. Mcdaniels is a 68-year-old male with known history of severe peripheral vascular disease, history of hypertension, chronic obstructive lung disease, who presented with gangrene of his right foot. He has been evaluated by Dr. Tong for metatarsal amputation. He has been evaluated at [facility] and underwent a myocardial perfusion imaging that revealed no evidence of inducible ischemia. His left ventricular systolic function was preserved by echocardiography. He is doing well this morning denying any chest pain. No dizziness. No palpitation. Denies any nausea. He is supine without any dyspnea. He continues to be on aspirin once a day, Lipitor 40 mg daily, labetalol 200 mg twice a day, Zestril 20 mg daily and nifedipine 30 mg daily. PHYSICAL EXAMINATION: Blood pressure 111/60 with a heart rate in the 70s. LUNGS: Clear. HEART: Regular rate and rhythm, S1, S2. No S3 with systolic murmur, no diastolic murmur, no rub. ABDOMEN: Soft, nontender. EXTREMITIES: Status post left AKA amputation and evidence of gangrene and dressing in place on the right foot. IMPRESSION: 1. Severe peripheral vascular disease, scheduled for amputation. 2. Hypertension. 3. Chronic obstructive lung disease. 4. Hyperlipidemia. RECOMMENDATION: From the cardiac standpoint, he is stable to proceed with scheduled intervention. His stress test that was obtained recently revealed no evidence of inducible ischemia and his left ventricular systolic function is normal. Will continue on present medical therapy. MMODL / IJN: [id number] /
[2019-04-29 10:07] LABS: African American GFR (CKD) >90 (>60 ml/min/1.73 sqM); Anion Gap 11 mmol/L; Blood Urea Nitrogen 12 mg/dL (9-20); Calcium 9.2 mg/dL (8.4-10.2); Carbon Dioxide 24 mmol/L (22-30); Chloride 102 mmol/L (98-107); Glucose 98 mg/dL (74-99); Potassium 4.6 mmol/L (3.5-5.1); Sodium 137 mmol/L (137-145)
[2019-04-29] MEDS: LABETALOL 200 MG TAB PO SCH ×2 (10:22→20:58)
[2019-04-29] MEDS: NIFEdipine XL 30 MG TAB.ER.24 PO SCH (10:22)
--- NOTE | 2019-04-29 12:55 | P.PN ---
Subjective Progress Note Date: 04/29/19 Principal diagnosis: Patient s/e no complaints. records from outside hospital arrived overnight NAD resting comfortably No resp distress RLE dry gangrene with minimal cellulitis RLE gangrene of toes PAD Await cardiology eval of previous testing for risk stratification. Will discuss with Dr Teague timing for planned TMA Objective - Vital Signs Vital signs: Vital Signs Temp 98.1 F 04/29/19 11:58 Pulse 83 04/29/19 11:58 Resp 17 04/29/19 11:58 BP 124/71 04/29/19 11:58 Pulse Ox 94 L 04/29/19 11:58 Intake & Output 04/28/19 04/29/19 04/29/19 18:59 06:59 18:59 Intake Total 575 900 Balance 575 900 Intake: Intake, IV Titration 575 900 Amount Sodium Chloride 0.9% 1, 275 900 000 ml @ 100 mls/hr IV . Q10H [facility] Rx#:[id number] Vancomycin 1,250 mg In 250 Sodium Chloride 0.9% 250 ml @ 125 mls/hr IVPB Q12H [facility] Rx#:[id number] cefTRIAXone 1 gm In 50 Sodium Chloride 0.9% 50 ml @ 100 mls/hr IVPB Q24HR [facility] Rx#:[id number] Other: Voiding Method Urinal Urinal # Voids 2 - Labs CBC & Chem 7: 04/29/19 08:05 04/29/19 08:05 Labs: Abnormal Lab Results - Last 24 Hours (Table) 04/28/19 04/29/19 Range/Units 14:58 08:05 RBC 3.45 L 3.43 L (4.30-5.90) m/uL Hgb 9.9 L 10.0 L (13.0-17.5) gm/dL Hct 30.8 L 30.9 L (39.0-53.0) % Microbiology - Last 24 Hours (Table) 04/26/19 20:05 Blood Culture - Preliminary Blood No Growth after 48 hours
--- NOTE | 2019-04-29 14:34 | CDI ---
Documentation Clarification Form Date: 04/29/2019 2:26:11 PM From: Jenniffer Michel CCS, CCDS Admit Date: 04/28/2019 10:32:00 AM Patient Name: Misael Mcdaniels Visit Number: [id number] Discharge Date: ATTENTION: The Clinical Documentation Specialists (CDI) and [facility] Coding Staff appreciate your assistance in clarifying documentation. Please respond to the clarification below the line at the bottom and electronically sign. The CDI & [facility] Coding staff will review the response and follow-up if needed. Please note: Queries are made part of the Legal Health Record. If you have any questions, please contact the author of this message via ITS. Dr. Padma Solano or Dr. Marcus Casey: Per the 04/27 History & Physical: "Mild renal insufficiency; slow IV fluid hydration in form of normal saline at a rate of 100 mL an hour; monitor strict CAIO's, daily weights, renal function and electrolytes; avoid nephrotoxins and hypotension." Per your 04/28 progress note: "Acute exacerbation COPD Mild renal injury 68-year-old male with history of severe peripheral vascular disease." History/Risk Factors: Severe PAD with previous left AKA, Hypertension, Hyperlipidemia, COPD, CAD with previous stent. Patients baseline BUN/CR/GFR: Unknown or not documented. Clinical Indicators: Presented with SOB & right lower extremity pain, previously scheduled for amputation of right foot toes, postponed due to inadequate cardiac clearance. BUN: 22^ - 10 = 12 Creatinine: 0.98 - 0.65* - 0.75 GFT 79 - >90 - >90 Treatment: INH Albuterol, IV fluid bolus, IV rocephin, IV Ms, IV Zofran, IV fluid rate 100, IV Vancomycin, IV Rocephin. Pending amputation. In order to capture the severity of condition, please clarify if the condition signifies: Acute renal failure or injury, please specify cause if known Acute renal failure or injury ruled out Other, please specify Unable to determine (Last Revision: November 2017) Acute renal failure or injury ruled out MTDD
[2019-04-29] MEDS: ATORVASTATIN 40 MG TAB PO SCH (20:58)
[2019-04-30] MEDS: SODIUM CHLORIDE 0.9% 1,000 ML IV SCH ×2 (06:02→15:20)
[2019-04-30] MEDS: IPRATROPIUM-ALBUTEROL 3 ML NEB INHALATION SCH ×3 (07:41→19:35)
[2019-04-30 08:11] LABS: Basophils % (A) 0 %; Eosinophils # (A) 0.5 k/uL (0-0.7); Eosinophils % (A) 5 %; HCT 29.1 % (39.0-53.0); HGB 9.8 gm/dL (13.0-17.5); Lymphocytes # (A) 1.1 k/uL (1.0-4.8); Lymphocytes % (A) 12 %; MCH 29.8 pg (25.0-35.0); MCHC 33.8 g/dL (31.0-37.0); MCV 88.1 fL (80.0-100.0); Mean Platelet Volume 6.5; Monocytes # (A) 0.5 k/uL (0-1.0); Monocytes % (A) 6 %; Neutrophils # (A) 6.8 k/uL (1.3-7.7); Neutrophils % (A) 74 %; Platelet Count 412 k/uL (150-450); RDW 14.1 % (11.5-15.5); WBC 9.2 k/uL (3.8-10.6)
[2019-04-30 08:35] LABS: African American GFR (CKD) >90 (>60 ml/min/1.73 sqM); Anion Gap 10 mmol/L; Blood Urea Nitrogen 11 mg/dL (9-20); Carbon Dioxide 24 mmol/L (22-30); Chloride 104 mmol/L (98-107); Glucose 86 mg/dL (74-99); Potassium 4.1 mmol/L (3.5-5.1); Sodium 138 mmol/L (137-145)
[2019-04-30] MEDS: ALLOPURINOL 100 MG TAB PO SCH (09:01)
[2019-04-30] MEDS: PANTOPRAZOLE 40 MG TABLET PO SCH ×2 (09:01→17:19)
[2019-04-30] MEDS: LISINOPRIL 20 MG TAB PO SCH (09:02)
[2019-04-30] MEDS: FOLIC ACID 1 MG TAB PO SCH (09:02)
[2019-04-30] MEDS: ENOXAPARIN 40 MG/0.4 ML SYRINGE SQ SCH (09:02)
[2019-04-30] MEDS: ASPIRIN 325 MG TAB PO SCH (09:02)
[2019-04-30] MEDS: VANCOMYCIN 1,250 MG in SODIUM CHLORIDE 0.9% 250 ML IVPB SCH ×2 (09:08→19:35)
[2019-04-30] MEDS: MULTIVITAMINS, THERA 1 EACH TAB PO SCH (09:16)
[2019-04-30] MEDS: LABETALOL 200 MG TAB PO SCH ×2 (10:03→23:14)
[2019-04-30] MEDS ORDERED: IV FLUID CONTINUATION 1,000 ML IV ONE (11:34)
[2019-04-30] MEDS ORDERED: MIDAZOLAM (PF) 2 MG/2 ML VIAL IV ONE (11:49)
[2019-04-30] MEDS ORDERED: fentaNYL (PF) 50 MCG/ML 2 ML AMP IV ONE (11:50)
[2019-04-30] MEDS ORDERED: ROCURONIUM BROMIDE 10 MG/ML 10 ML VIAL IV ONE (11:52)
[2019-04-30] MEDS ORDERED: PROPOFOL 10 MG/ML 20 ML VIAL IV ONE (11:52)
[2019-04-30] MEDS ORDERED: LIDOCAINE 1% INJ 10MG/ML (20 ML MDV) ONE (11:52)
[2019-04-30] MEDS ORDERED: ePHEDrine SULFATE/0.9% NACL/PF 50 MG/5 ML SYRINGE IV ONE (11:52)
[2019-04-30] MEDS ORDERED: DEXAMETHASONE SOD PHOSPHATE 4 MG/ML 1 ML VIAL ONE (11:52)
[2019-04-30] MEDS ORDERED: PHENYLEPHRINE-0.9% NACL SYG 1 MG/10 ML SYRINGE ONE (11:52)
[2019-04-30] MEDS ORDERED: ROPIVACAINE 5 MG/ML 30 ML VIAL ONE (11:52)
--- NOTE | 2019-04-30 12:11 | P.ANPRN ---
Procedure Note - Anesthesia - Nerve Block Performed Right Adductor Canal Single Time Out Performed: Yes Date of Procedure: 04/30/19 Procedure Start Time: 11:47 Procedure Stop Time: 12:00 Location of Patient Procedure: PreOp Indication: Acute Post-Operative Pain, Requested by Surgeon Sedation Type: Sedate with meaningful contact maintained Preparation: Sterile Prep Position: Supine Catheter: None Needle Types: Pajunk Needle Gauge: 18 Ultrasound used to visualize needle placement: Yes Ultrasound used to observe medication spread: Yes Injectate: Other (see comment) (0.375% ropivacaine- 10 cc + decadron 2mg) Narrative: No blood flow through femoral artery in adductor canal Blood Aspirated: No Pain Paresthesia on Injection Noted: No Resistance on Injection: Normal Image Stored and Saved: Yes Events: Uneventful and Well Tolerated Right Popliteal Single Time Out Performed: Yes Date of Procedure: 04/30/19 Procedure Start Time: 11:47 Procedure Stop Time: 12:00 Location of Patient Procedure: PreOp Indication: Acute Post-Operative Pain, Requested by Surgeon Sedation Type: Sedate with meaningful contact maintained Preparation: Sterile Prep Position: Supine Catheter: None Needle Types: Pajunk Needle Gauge: 18 Ultrasound used to visualize needle placement: Yes Ultrasound used to observe medication spread: Yes Injectate: Other (see comment) (0.375% ropivacaine- 20 cc + decadron 2mg) Blood Aspirated: No Pain Paresthesia on Injection Noted: No Resistance on Injection: Normal Image Stored and Saved: Yes Events: Uneventful and Well Tolerated
[2019-04-30] MEDS ORDERED: ceFAZolin 4 GM, BACITRACIN 200,000 UNIT in SODIUM CHLORIDE 0.9% 1,000 ML IRRIGATION ONE (12:29)
[2019-04-30] MEDS ORDERED: LACTATED RINGERS 1,000 ML IV ONE (13:02)
--- NOTE | 2019-04-30 13:26 | P.OP ---
Date of Procedure: 04/30/19 Description of Procedure: SURGEON: Deepti Ewing DO PREOPERATIVE DIAGNOSIS: Dry gangrene right second through fourth toes, ulceration great toe POSTOPERATIVE DIAGNOSIS: Same OPERATION: Right transmetatarsal amputation ANESTHESIA: Abductor canal block with Luis, converted to general anesthesia per endotracheal tube ESTIMATED BLOOD LOSS: 10 mL SPECIMENS REMOVED: Right forefoot COMPLICATIONS: None OPERATIVE FINDINGS: The patient is a 68-year-old male with severe peripheral ar terial disease and previous recommendations to undergo digital amputation on his right foot. He presented to our hospital with gangrene of his second through fourth toes. After appropriate clearance he was scheduled for a right transmetatarsal amputation. At the time of the procedure, blood flow was significantly diminished at the level of the amputation. There was no evidence of purulent pockets or areas of undrained abscess. DESCRIPTION OF PROCEDURE: Patient was taken to the operating room and placed in supine position. The right lower extremity was prepped, and draped in usual sterile fashion. A preprocedure timeout was performed, all parties are in agreement. Previously in the preoperative area a regional block was performed. It appeared to be inadequate, and prior to continuing with the surgical intervention, general anesthesia per endotracheal tube was initiated by anesthesia. An incision was then made at the dorsal foot and carried around in excisional fashion with a longer plantar flap at the base of the metatarsals. This is carried down through the skin and subcutaneous tissues to the level of the bone. Ladd elevator was utilized to remove the periosteal tissue from the bone. A bone saw was utilized to transect the first through fifth metatarsals. Garrick and rasp were utilized to smooth the bone. The area was then copiously irrigated with antibiotic solution. There was diminished blood flow noted throughout. The wound was then reapproximated, the deep dermal tissues were reapproximated with interrupted sutures of 3-0 Vicryl. The skin was reapproxim ated with 3-0 nylon in vertical mattress fashion. A dressing was placed. The patient was allowed awaken from anesthesia and transported to PACU in stable condition having tolerated his procedure well.
[2019-04-30] MEDS: NIFEdipine XL 30 MG TAB.ER.24 PO SCH (14:21)
--- NOTE | 2019-04-30 22:05 | P.PN ---
Subjective Progress Note Date: 04/29/19 Principal diagnosis: Gangrene/infection right lower extremity Acute exacerbation COPD Mild renal injury 04/28/2019 Patient is seen and evaluated in room at bedside; patient denies any specific complaints at this time Vital signs are reviewed and stable with a temperature of 97.9, pulse 80, respiration 18 and blood pressure 111/63 with SpO2 of 97% on room air Lab review shows CBC with white blood count of 9.2 which is improved from 13.2 yesterday; patient has hemoglobin dropped from 11.2 yesterday down to 9.9; sodium 136, potassium 4.1 Marked anemia; patient is currently on aspirin and Lovenox; we will order stool occult blood along with monitoring hemoglobin and hematocrit every 8 hours; start patient on twice a day dosing of oral Protonix; we will recommend discontinuing Lovenox if stool occult blood comes back positive at hemoglobin continues to drop Patient is evaluated by cardiology and recommended 2-D echo; patient's stress test results from outside facility has been requested; per cardiology patient might need to undergo repeat stress testing if results are not available or significant abnormality on echocardiogram 04/29/2019 Patient denied any complaints of chest pain or shortness of breath. Right sec ond to fourth toe gangrene and great toe ulcer and wound is dressed at this time. Patient is being converted on antibiotics form of ceftriaxone and vancomycin. No fever no chills. No wheezing noted on exam. Currently being continued on DuoNeb's. Troponin is 10.0. Renal function is normalized. 2-D echocardiogram and stress test reports reviewed from outside hospital facility. Vascular surgery is planning for transmetatarsal amputation of the right foot, possibly tomorrow. Current medications reviewed. Objective - Vital Signs Vital signs: Vital Signs Temp 98.1 F 04/29/19 11:58 Pulse 68 04/29/19 19:22 Resp 16 04/29/19 19:22 BP 124/71 04/29/19 11:58 Pulse Ox 94 L 04/29/19 15:24 Intake & Output 04/29/19 04/29/19 04/30/19 06:59 18:59 06:59 Intake Total 900 300 Balance 900 300 Intake: Intake, IV Titration 900 300 Amount Sodium Chloride 0.9% 1, 900 000 ml @ 100 mls/hr IV . Q10H [facility] Rx#:[id number] Vancomycin 1,250 mg In 250 Sodium Chloride 0.9% 250 ml @ 125 mls/hr IVPB Q12H [facility] Rx#:[id number] cefTRIAXone 1 gm In 50 Sodium Chloride 0.9% 50 ml @ 100 mls/hr IVPB Q24HR [facility] Rx#:[id number] Other: Voiding Method Urinal # Voids 2 - Exam General appearance: alert, in no apparent distress Head exam: Present: atraumatic, normocephalic, normal inspection Eye exam: Present: normal appearance, PERRL, EOMI. Absent: scleral icterus, conjunctival injection, periorbital swelling ENT exam: Present: normal exam, mucous membranes moist Neck exam: Present: normal inspection. Absent: tenderness, meningismus, lymphadenopathy Respiratory exam: Present: wheezes, accessory muscle use, decreased breath sounds, prolonged expiratory. Absent: respiratory distress, rales, rhonchi, stridor Cardiovascular Exam: Present: regular rate, normal rhythm, normal heart sounds. Absent: systolic murmur, diastolic murmur, rubs, gallop, clicks GI/Abdominal exam: Present: soft, normal bowel sounds. Absent: distended, tenderness, guarding, rebound, rigid Extremities exam: Present: normal inspection, full ROM, normal capillary refill, other (Lower extremity gangrene symptoms significant necrosis secondary to PAD of right foot). Absent: tenderness, pedal edema, joint swelling, calf tenderness Back exam: Present: normal inspection Neurological exam: Present: alert, oriented X3, CN II-XII intact - Labs CBC & Chem 7: 04/30/19 07:34 04/30/19 07:34 Labs: Abnormal Lab Results - Last 24 Hours (Table) 04/29/19 Range/Units 08:05 RBC 3.43 L (4.30-5.90) m/uL Hgb 10.0 L (13.0-17.5) gm/dL Hct 30.9 L (39.0-53.0) % Microbiology - Last 24 Hours (Table) 04/26/19 20:05 Blood Culture - Preliminary Blood No Growth after 48 hours Assessment and Plan Assessment: Assessment: 1. Infection/gangrene right lower extremity with gangrene of second to fourth toe and great toe ulcer. - Patient is started on IV Rocephin and vancomycin from ED; we will continue with current antibiotic therapy - Consult vascular surgery for further recommendations - Cardiology is consulted for cardiac clearance for pending surgery. Outpatient stress test reports were reviewed. -Vascular surgery is planning for amputation tomorrow. 2. Acute exacerbation COPD - DuoNeb nebulizer treatments 3 times a day and when necessary - improved now. 3. Mild renal insufficiency; slow IV fluid hydration in form of normal saline at a rate of 100 mL an hour; monitor strict CAIO's, daily weights, renal function and electrolytes; avoid nephrotoxins and hypotension 4. Hypertension; continue home dose of labetalol 200 mg twice a day and lis inopril 20 mg daily; Procardia XL 30 mg daily 5. Hyperlipidemia; atorvastatin 40 mg by mouth daily at bedtime 6. DVT prophylaxis; subcu Lovenox CODE STATUS; full code Time with Patient: Greater than 30
[2019-04-30] MEDS: ATORVASTATIN 40 MG TAB PO SCH (23:14)
[2019-05-01] MEDS: SODIUM CHLORIDE 0.9% 1,000 ML IV SCH ×2 (04:00→10:59)
[2019-05-01 05:37] VITALS: RESP 18
[2019-05-01] MEDS ORDERED: VANCOMYCIN TROUGH DUE 1 EACH MISC MISCELLANE ONE (07:00)
[2019-05-01 07:08] LABS: Basophils % (A) 0 %; Eosinophils % (A) 0 %; HCT 28.1 % (39.0-53.0); HGB 9.1 gm/dL (13.0-17.5); Lymphocytes # (A) 0.6 k/uL (1.0-4.8); Lymphocytes % (A) 5 %; MCH 28.6 pg (25.0-35.0); MCHC 32.2 g/dL (31.0-37.0); MCV 88.7 fL (80.0-100.0); Mean Platelet Volume 6.8; Monocytes # (A) 0.6 k/uL (0-1.0); Monocytes % (A) 5 %; Neutrophils # (A) 10.4 k/uL (1.3-7.7); Neutrophils % (A) 88 %; Platelet Count 425 k/uL (150-450); RBC 3.17 m/uL (4.30-5.90); RDW 14.2 % (11.5-15.5); WBC 11.8 k/uL (3.8-10.6)
[2019-05-01 07:49] LABS: African American GFR (CKD) >90 (>60 ml/min/1.73 sqM); Anion Gap 11 mmol/L; Blood Urea Nitrogen 14 mg/dL (9-20); Calcium 8.5 mg/dL (8.4-10.2); Carbon Dioxide 22 mmol/L (22-30); Chloride 105 mmol/L (98-107); Glucose 106 mg/dL (74-99); Potassium 4.9 mmol/L (3.5-5.1); Sodium 138 mmol/L (137-145)
[2019-05-01] MEDS: PANTOPRAZOLE 40 MG TABLET PO SCH (07:49)
[2019-05-01] MEDS: ALLOPURINOL 100 MG TAB PO SCH (07:49)
[2019-05-01] MEDS: ASPIRIN 325 MG TAB PO SCH (07:50)
[2019-05-01] MEDS: MULTIVITAMINS, THERA 1 EACH TAB PO SCH (07:50)
[2019-05-01] MEDS: ENOXAPARIN 40 MG/0.4 ML SYRINGE SQ SCH (07:50)
[2019-05-01] MEDS: NIFEdipine XL 30 MG TAB.ER.24 PO SCH (07:50)
[2019-05-01] MEDS: LABETALOL 200 MG TAB PO SCH (07:50)
[2019-05-01] MEDS: LISINOPRIL 20 MG TAB PO SCH (07:50)
[2019-05-01] MEDS: FOLIC ACID 1 MG TAB PO SCH (07:50)
[2019-05-01] MEDS: MORPHINE SULFATE 4 MG/ML SYRINGE IVP PRN ×2 (07:57→14:37)
[2019-05-01] MEDS: IPRATROPIUM-ALBUTEROL 3 ML NEB INHALATION SCH ×2 (08:28→11:57)
--- NOTE | 2019-05-01 08:34 | P.PN ---
Subjective Progress Note Date: 05/01/19 Principal diagnosis: Patient s/e no complaints. Sitting at bedside eating breakfast NAD resting comfortably No resp distress Right lower extremity dressing change. No overt ischemic changes to the incision. RLE gangrene of toes, status post transmetatarsal amputation PAD Satisfactory postoperative currently, tenuous blood supply at the area of the incision, monitor closely. At this time okay for discharge from vascular standpoint. Continue offloading. Only heel touch weightbearing. Continue postoperative shoe. Follow-up with Dr. Bojorquez in 2 weeks Objective - Vital Signs Vital signs: Vital Signs Temp 98.4 F 05/01/19 05:00 Pulse 88 05/01/19 05:00 Resp 18 05/01/19 05:00 BP 111/53 05/01/19 05:00 Pulse Ox 93 L 05/01/19 05:00 Intake & Output 04/30/19 05/01/19 05/01/19 18:59 06:59 18:59 Intake Total 1301 1100 Output Total 20 300 350 Balance 1281 800 -350 Intake: IV 1001 Intake, IV Titration 300 1100 Amount Sodium Chloride 0.9% 1, 1100 000 ml @ 100 mls/hr IV . Q10H [facility] Rx#:[id number] Vancomycin 1,250 mg In 250 Sodium Chloride 0.9% 250 ml @ 125 mls/hr IVPB Q12H [facility] Rx#:[id number] cefTRIAXone 1 gm In 50 Sodium Chloride 0.9% 50 ml @ 100 mls/hr IVPB Q24HR [facility] Rx#:[id number] Output: Urine 300 350 Estimated Blood Loss 20 Other: Voiding Method Urinal - Labs CBC & Chem 7: 05/01/19 06:38 05/01/19 06:38 Labs: Abnormal Lab Results - Last 24 Hours (Table) 05/01/19 05/01/19 Range/Units 06:38 06:38 WBC 11.8 H (3.8-10.6) k/uL RBC 3.17 L (4.30-5.90) m/uL Hgb 9.1 L (13.0-17.5) gm/dL Hct 28.1 L (39.0-53.0) % Neutrophils # 10.4 H (1.3-7.7) k/uL Lymphocytes # 0.6 L (1.0-4.8) k/uL Glucose 106 H (74-99) mg/dL Microbiology - Last 24 Hours (Table) 04/26/19 20:05 Blood Culture - Preliminary Blood No Growth after 96 hours
[2019-05-01] MEDS: VANCOMYCIN 1,250 MG in SODIUM CHLORIDE 0.9% 250 ML IVPB SCH (09:54)
[2019-05-01 12:21] VITALS: BP 100/57; PULSE 75; TEMP 97.5
--- NOTE | 2019-05-01 12:32 | P.DS ---
Providers Date of admission: 04/28/19 10:32 Expected date of discharge: 05/01/19 Attending physician: Rocio Heath Consults: 04/26/19 19:38 Consult Physician Routine Consulting Provider: Harvey Tong Consult Reason/Comments: known Do you want consulting provider notified?: Yes Consult Physician Urgent Consulting Provider: Riaz Enriquez Consult Reason/Comments: surgicalClear Do you want consulting provider notified?: Yes Primary care physician: [facility] Course: Final diagnosis Infection/gangrene right lower extremity with gangrene of second to fourth toe a nd great toe ulcer acute exacerbation COPD Mild renal insufficiency Hypertension Hyperlipidemia DVT prophylaxis Full code Discharge disposition Patient is being discharged in a stable condition with guarded prognosis to [facility] for continued PT/OT therapy. Patient will continue a short course of oral antibiotics in the form of Keflex for the next 10 days. Patient will follow-up with Dr. Teague in 10 days to 2 weeks. History of present illness This is a 68-year-old male who was recently admitted for right lower extremity pain with a history of right lower extremity wounds and peripheral arterial disease and infection as well as an acute COPD exacerbation and is being followed closely. Patient was being maintained on inhalation treatments 3 times daily and will continue. Multiple medical consultations were following. During hospitalization patient underwent right foot transmetatarsal amputation of the first through fifth toes with vascular surgery after cardiac clearance due to elevated troponins. Patient underwent an echo showed an EF of 65-70%. She was cleared from a cardiac standpoint for the procedure. Currently patient's condition is stable with much improvement. Dressing to the right foot is dry and intact. Per vascular surgery patient will continue with a course of oral antibiotics in the form of Keflex for the next 10 days and patient will follow- up with Dr. Teague in 10 days to 2 weeks. Patient Denies any Chest pain, shortness of breath, or palpitations at this time. Patient denies any nausea or vomiting and is tolerating diet. Patient is afebrile. Patient is stable for discharge to [facility]. On exam vital signs are stable. Is 97.5F, pulse is 75, respirations are 18, blood pressure is 100/57, surgeon saturation is 93% on room air. Cardio S1 and S2 are heard. Respiratory system shows diminished breath sounds at the bases otherwise clear to auscultation. Abdomen is soft and non-tender. Shows no focal deficits with mild diffuse weakness. Patient is a left leg [id number] amputation and recent right foot transmetatarsal amputation of all toes. Please Refer to medication reconciliation sheet for a list of medications. Patient Condition at Discharge: Fair Plan - Discharge Summary Discharge Rx Participant: No New Discharge Prescriptions: New Aspirin 325 mg PO DAILY tab Ipratropium-Albuterol Nebulize [Duoneb 0.5 mg-3 mg/3 ml Soln] 3 ml INHALATION RT-TID ampul.neb Cephalexin [Keflex] 500 mg PO Q6HR 10 Days #40 cap Pantoprazole [Protonix] 40 mg PO AC-BID tablet.dr Araya Nystatin 100,000Unit/gm Cream [Mycostatin Cream] 1 applic TOPICAL BID PRN PRN Reason: Rash NIFEdipine [NIFEdipine ER] 30 mg PO DAILY Lisinopril [Zestril] 20 mg PO DAILY Labetalol [Trandate] 200 mg PO BID Multivit-Min/FA/Lycopen/Lutein [Centrum Silver Men Tablet] 1 tab PO DAILY Folic Acid 1 mg PO DAILY Atorvastatin [Lipitor] 40 mg PO HS Allopurinol [Zyloprim] 100 mg PO DAILY Triamcinolone 0.1% Ointment [Kenalog 0.1% Ointment] 1 applic TOPICAL BID Bacitracin Oint 1 applic TOPICAL DAILY Discharge Medication List Allopurinol [Zyloprim] 100 mg PO DAILY 04/19/19 [History] Atorvastatin [Lipitor] 40 mg PO HS 04/19/19 [History] Folic Acid 1 mg PO DAILY 04/19/19 [History] Labetalol [Trandate] 200 mg PO BID 04/19/19 [History] Lisinopril [Zestril] 20 mg PO DAILY 04/19/19 [History] Multivit-Min/FA/Lycopen/Lutein [Centrum Silver Men Tablet] 1 tab PO DAILY 04/19/19 [History] NIFEdipine [NIFEdipine ER] 30 mg PO DAILY 04/19/19 [History] Nystatin 100,000Unit/gm Cream [Mycostatin Cream] 1 applic TOPICAL BID PRN [History] Bacitracin Oint 1 applic TOPICAL DAILY 04/26/19 [History] Triamcinolone 0.1% Ointment [Kenalog 0.1% Ointment] 1 applic TOPICAL BID 04/26/19 [History] Aspirin 325 mg PO DAILY tab 05/01/19 [Rx] Cephalexin [Keflex] 500 mg PO Q6HR 10 Days #40 cap 05/01/19 [Rx] Ipratropium-Albuterol Nebulize [Duoneb 0.5 mg-3 mg/3 ml Soln] 3 ml INHALATION RT-TID ampul.neb 05/01/19 [Rx] Pantoprazole [Protonix] 40 mg PO AC-BID tablet. 05/01/19 [Rx] Follow up Appointment(s)/Referral(s): Zuhair Teague DO [Doctor of Osteopathic Medicine] - 2 Weeks Zuhair Martinez MD [Primary Care Provider] - 1-2 days Activity/Diet/Wound Care/Special Instructions: Patient will be going to [facility] Activity as tolerated Continue current diet Follow-up with vascular surgery in 2 weeks upon discharge Follow up with primary care provider upon discharge Discharge Disposition: TRANSFER TO SNF/ECF
[2019-05-02] MEDS ORDERED: VANCOMYCIN 1,000 MG in SODIUM CHLORIDE 0.9% 250 ML IVPB SCH ×2
--- NOTE | 2019-05-05 12:07 | P.PN ---
Subjective Progress Note Date: 04/30/19 Principal diagnosis: Gangrene/infection right lower extremity Acute exacerbation COPD Mild renal injury 04/28/2019 Patient is seen and evaluated in room at bedside; patient denies any specific complaints at this time Vital signs are reviewed and stable with a temperature of 97.9, pulse 80, respiration 18 and blood pressure 111/63 with SpO2 of 97% on room air Lab review shows CBC with white blood count of 9.2 which is improved from 13.2 yesterday; patient has hemoglobin dropped from 11.2 yesterday down to 9.9; sodium 136, potassium 4.1 Marked anemia; patient is currently on aspirin and Lovenox; we will order stool occult blood along with monitoring hemoglobin and hematocrit every 8 hours; start patient on twice a day dosing of oral Protonix; we will recommend discontinuing Lovenox if stool occult blood comes back positive at hemoglobin continues to drop Patient is evaluated by cardiology and recommended 2-D echo; patient's stress test results from outside facility has been requested; per cardiology patient might need to undergo repeat stress testing if results are not available or significant abnormality on echocardiogram 04/29/2019 Patient denied any complaints of chest pain or shortness of breath. Right sec ond to fourth toe gangrene and great toe ulcer and wound is dressed at this time. Patient is being converted on antibiotics form of ceftriaxone and vancomycin. No fever no chills. No wheezing noted on exam. Currently being continued on DuoNeb's. Hemoglobin is 10.0. Renal function is normalized. 2-D echocardiogram and stress test reports reviewed from outside hospital facility. Vascular surgery is planning for transmetatarsal amputation of the right foot, possibly tomorrow. 04/30/2090 Patient is status post metatarsal amputation. Hemoglobin is 9.8 today. Renal function is stable. Currently on antibiotics.. Breasts loss surgery is on board. Continued on wound dressing and pain management. No other acute overnight issues. Current medications reviewed. Objective - Vital Signs Vital signs: Vital Signs Temp 96.2 F L 04/30/19 19:37 Pulse 90 04/30/19 20:49 Resp 16 04/30/19 19:46 BP 108/68 04/30/19 20:49 Pulse Ox 95 04/30/19 20:49 Intake & Output 09/24/19 09/24/19 09/25/19 06:59 18:59 06:59 Intake Total 850 1301 Output Total 600 20 300 Balance 250 1281 -300 Intake: IV 1001 Intake, IV Titration 850 300 Amount Sodium Chloride 0.9% 1, 600 000 ml @ 100 mls/hr IV . Q10H [facility] Rx#:[id number] Vancomycin 1,250 mg In 250 250 Sodium Chloride 0.9% 250 ml @ 125 mls/hr IVPB Q12H [facility] Rx#:[id number] cefTRIAXone 1 gm In 50 Sodium Chloride 0.9% 50 ml @ 100 mls/hr IVPB Q24HR [facility] Rx#:[id number] Output: Urine 600 300 Estimated Blood Loss 20 Other: Voiding Method Urinal # Bowel Movements 0 - Exam General appearance: alert, in no apparent distress Head exam: Present: atraumatic, normocephalic, normal inspection Eye exam: Present: normal appearance, PERRL, EOMI. Absent: scleral icterus, conjunctival injection, periorbital swelling ENT exam: Present: normal exam, mucous membranes moist Neck exam: Present: normal inspection. Absent: tenderness, meningismus, lymphadenopathy Respiratory exam: Present: wheezes, accessory muscle use, decreased breath sounds, prolonged expiratory. Absent: respiratory distress, rales, rhonchi, stridor Cardiovascular Exam: Present: regular rate, normal rhythm, normal heart sounds. Absent: systolic murmur, diastolic murmur, rubs, gallop, clicks GI/Abdominal exam: Present: soft, normal bowel sounds. Absent: distended, tenderness, guarding, rebound, rigid Extremities exam: Present: normal inspection, full ROM, normal capillary refill, right foot amputated site is bandaged. Absent: tenderness, pedal edema, joint swelling, calf tenderness Back exam: Present: normal inspection Neurological exam: Present: alert, oriented X3, CN II-XII intact - Labs CBC & Chem 7: 05/01/19 06:38 05/01/19 06:38 Labs: Abnormal Lab Results - Last 24 Hours (Table) 04/30/19 Range/Units 07:34 RBC 3.30 L (4.30-5.90) m/uL Hgb 9.8 L (13.0-17.5) gm/dL Hct 29.1 L (39.0-53.0) % Microbiology - Last 24 Hours (Table) 04/26/19 20:05 Blood Culture - Preliminary Blood No Growth after 72 hours Assessment and Plan Assessment: Assessment: 1. Infection/gangrene right lower extremity with gangrene of second to fourth toe and great toe ulcer. - Patient is started on IV Rocephin and vancomycin from ED; continue with current antibiotic therapy - Vascular surgery is following. - Cardiology is consulted for cardiac clearance for pending surgery. Outpatient stress test reports were reviewed. -Patient is status post right foot metatarsal amputation. Postoperative day 1. 2. Acute exacerbation COPD - DuoNeb nebulizer treatments 3 times a day and when necessary - improved now. 3. Mild renal insufficiency; slow IV fluid hydration in form of normal saline at a rate of 100 mL an hour; monitor strict CAIO's, daily weights, renal function and electrolytes; avoid nephrotoxins and hypotension 4. Hypertension; continue home dose of labetalol 200 mg twice a day and lisinopril 20 mg daily; Procardia XL 30 mg daily 5. Hyperlipidemia; atorvastatin 40 mg by mouth daily at bedtime 6. DVT prophylaxis; subcu Lovenox CODE STATUS; full code Time with Patient: Greater than 30
== END 2019-05-01 15:30 | DRG 240 ==
LOC: EC 18:35 → 3NMEDONC 19:38 → OBSVTOIN 04-28 10:32 → 3NMEDONC 04-29 05:49
PROVIDERS: ADMIT Hospitalist; ATTEND Hospitalist
PROC: 0Y6M0ZB Detachment at Right Foot, Partial 2nd Ray, Open Approach (ICD-10-PCS; 2019-04-30)
PROC: 0Y6M0ZC Detachment at Right Foot, Partial 3rd Ray, Open Approach (ICD-10-PCS; 2019-04-30)
PROC: 0Y6M0ZD Detachment at Right Foot, Partial 4th Ray, Open Approach (ICD-10-PCS; 2019-04-30)
PROC: 0Y6M0ZF Detachment at Right Foot, Partial 5th Ray, Open Approach (ICD-10-PCS; 2019-04-30)
PROC: 0Y6M0Z9 Detachment at Right Foot, Partial 1st Ray, Open Approach (ICD-10-PCS; principal; 2019-04-30 10:00)
DX: I70.261 Atherosclerosis of native arteries of extremities with gangrene, right leg (principal); J44.1 Chronic obstructive pulmonary disease with (acute) exacerbation; L97.519 Non-pressure chronic ulcer of other part of right foot with unspecified severity; D64.9 Anemia, unspecified; E78.5 Hyperlipidemia, unspecified; I10 Essential (primary) hypertension; I25.9 Chronic ischemic heart disease, unspecified; N28.9 Disorder of kidney and ureter, unspecified; Z87.891 Personal history of nicotine dependence; Z79.82 Long term (current) use of aspirin; Z79.899 Other long term (current) drug therapy; Z80.0 Family history of malignant neoplasm of digestive organs; Z86.73 Personal history of transient ischemic attack (TIA), and cerebral infarction without residual deficits; Z89.612 Acquired absence of left leg above knee; R79.89 Other specified abnormal findings of blood chemistry; Z88.0 Allergy status to penicillin; M10.9 Gout, unspecified
CPT/HCPCS: 36415; 64447; 71046; 76942; 80048; 80053; 80202; 83735; 83880; 84484; 85025; 85610; 85730; 87040; 88307; 93005; 93306; 94640; 94760; 96365; 96368; 99285

== ENCOUNTER 2019-06-10 17:14 | Inpatient (IN) | payer MEDICARE, BC, OTHER ==
[2019-06-10] MEDS ORDERED: NALOXONE 0.4 MG/ML 1 ML VIAL IV PRN (18:23)
[2019-06-10] MEDS ORDERED: NYSTATIN 100,000UNIT/GM CREAM 30 GM TUBE TOPICAL PRN (18:24)
[2019-06-10] MEDS ORDERED: HYDROmorphone 0.5 MG/0.5 ML SYRINGE IVP PRN (18:27)
[2019-06-10] MEDS ORDERED: ACETAMINOPHEN TAB 500 MG TAB PO PRN (18:27)
[2019-06-10] MEDS ORDERED: ALPRAZolam 0.25 MG TAB PO PRN (18:27)
[2019-06-10] MEDS ORDERED: TEMAZEPAM 15 MG CAP PO PRN (18:27)
[2019-06-10] MEDS ORDERED: HYDROcodone/APAP 5-325MG 1 EACH TAB PO PRN (18:27)
[2019-06-10] MEDS: IPRATROPIUM-ALBUTEROL 3 ML NEB INHALATION SCH (18:49)
[2019-06-10 19:11] LABS: Basophils % (A) 0 %; Eosinophils # (A) 0.7 k/uL (0-0.7); Eosinophils % (A) 7 %; HCT 30.2 % (39.0-53.0); HGB 9.6 gm/dL (13.0-17.5); Hypochromasia Slight; Lymphocytes # (A) 1.2 k/uL (1.0-4.8); Lymphocytes % (A) 11 %; MCH 29.1 pg (25.0-35.0); MCHC 31.8 g/dL (31.0-37.0); MCV 91.4 fL (80.0-100.0); Mean Platelet Volume 6.3; Monocytes # (A) 0.5 k/uL (0-1.0); Monocytes % (A) 4 %; Neutrophils # (A) 8.2 k/uL (1.3-7.7); Neutrophils % (A) 76 %; Platelet Count 408 k/uL (150-450); RDW 14.5 % (11.5-15.5); WBC 10.8 k/uL (3.8-10.6)
[2019-06-10 19:13] LABS: Prothrombin Time 10.7 sec (9.0-12.0)
[2019-06-10 19:21] LABS: Albumin 3.8 g/dL (3.5-5.0); Calcium 9.6 mg/dL (8.4-10.2); Potassium 5.1 mmol/L (3.5-5.1); Total Bilirubin 0.3 mg/dL (0.2-1.3); Total Protein 7.4 g/dL (6.3-8.2)
[2019-06-10] MEDS ORDERED: ceFAZolin 1,000 MG VIAL (IM USE) IM STA (20:50)
[2019-06-10] MEDS: SODIUM CHLORIDE 0.9% 1,000 ML IV SCH (21:01)
--- NOTE | 2019-06-10 21:29 | HP ---
HISTORY AND PHYSICAL DATE OF SERVICE: 06/10/2019 CHIEF COMPLAINT: Nonhealing ulcers of the right foot. HISTORY OF PRESENT ILLNESS: This 68-year-old gentleman with a past medical history of CVA/TIA, hypertension, history of cardiac murmur, history of peripheral vascular disease, being followed by Dr. Martinez in the outpatient setting, recently had right toe multiple amputations by Dr. Ewing for severe peripheral vascular disease and gangrene. The patient was being seen by [facility] by Dr. Foster for nonhealing ulcers and the patient directly admitted to [facility] for further evaluation and possible AKA of the right leg. The patient had left above-knee amputation at [facility] previously according to him. There is no history of headache. No history of fever, rigors, no headache, loss of consciousness or seizures. No chest pain, palpitations, hematochezia or melena. Past history of mild renal insufficiency. PAST MEDICAL HISTORY: CVA, TIA, hypertension, history of cardiac murmur, history of nicotine dependence. MEDICATIONS: Home medications are: 1. Protonix 40 mg daily. 2. Nystatin. 3. Nifedipine 30 mg b.i.d. 4. Multivitamins one p.o. daily. 5. Zestril 20 mg p.o. 6. Trandate 200 mg p.o. daily. 7. DuoNeb q.i.d. and p.r.n. 8. Folic acid 1 mg p.o. daily. 9. Keflex 500 mg p.o. q.6h. 10.Lipitor 40 mg q.h.s. 11.Aspirin 320 mg p.o. daily. 12.Zyloprim 100 mg p.o. daily. 13.Triamcinolone 1 application b.i.d. 14.Bacitracin ointment daily. ALLERGIES: PENICILLIN. FAMILY HISTORY: History of colon cancer in the family. SOCIAL HISTORY: Previous history of smoking. No history of current smoking or alcohol intake. REVIEW OF SYSTEMS: ENT: No diminished vision. No diminished hearing. CARDIOVASCULAR: No angina or palpitations. RESPIRATORY: As mentioned earlier. GI no nausea or vomiting. no dysuria. Nervous system: No numbness or weakness. ALLERGY/IMMUNOLOGY: No asthma or hayfever. MUSCULOSKELETAL as mentioned earlier. HEMATOLOGY/ONCOLOGY: As mentioned earlier. ENDOCRINE: No history of diabetes or hypothyroidism. CONSTITUTIONAL: As mentioned earlier. DERMATOLOGY: Negative. RHEUMATOLOGY negative. PSYCHIATRY as mentioned earlier. PHYSICAL EXAMINATION: GENERAL: Alert and oriented x3. Pulse is 80. Blood pressure 120/92, respiration 20, temperature normal. HEENT: Conjunctivae normal. Oral mucosa moist. NECK is no jugular venous distention. No carotid bruit. No lymph node enlargement. Cardiovascular system: S1, S2 muffled. No S3, no S4. RESPIRATORY: Breath sounds diminished in the bases. A few rhonchi. No crackles. ABDOMEN: Soft, nontender. No mass palpable. LEGS significant ulcerations and pain and swelling of the right foot present, status post multiple amputations of toes and pulses diminished bilaterally, cold to touch. NERVOUS SYSTEM: Higher functions as mentioned earlier. Moves all four limbs. No focal motor or sensory deficits. LYMPHATICS: No lymph nodes palpable in the neck, axillae or groin. SKIN: As mentioned. JOINTS: No active deforming arthropathy. Examination of the legs status post left above-knee amputation. LABS: Not available. ASSESSMENT: 1. Acute gangrene of the right leg with nonhealing ulcers, nonhealing postoperative ulcers and failure of outpatient treatment for possible right above-knee amputation. 2. History of left above-knee amputation. 3. Severe peripheral vascular disease. 4. History of cerebrovascular accident/transient ischemic attack. 5. Hypertension. 6. History of cardiac murmur. 7. History of gout. 8. Remote history of nicotine dependence. 9. History of right bunionectomy. 10.Chronic obstructive pulmonary disease. 11.Hypertension. 12.Hyperlipidemia. RECOMMENDATIONS AND DISCUSSION: In this 68-year-old gentleman who was admitted with multiple medical issues, we will monitor the patient closely, continue the current medications, management and symptomatic treatment. We will initiate broad-spectrum IV antibiotics. Otherwise, I would also recommend infectious disease evaluation and cultures. Other than that, otherwise, vascular surgery consultation. Resume the home medications. DVT prophylaxis. Incentive spirometry. Proton pump inhibitors. Guarded prognosis because of multiple complex medical issues. Further recommendations to follow. A copy of dictation is being forwarded to Dr. Martinez who is the primary physician. MMODL / IJN: [id number] /
[2019-06-10] MEDS: ATORVASTATIN 40 MG TAB PO SCH (22:28)
[2019-06-10] MEDS: LABETALOL 200 MG TAB PO SCH (22:28)
[2019-06-10] MEDS: HEPARIN SODIUM,PORCINE 5,000 UNIT/ML 1 ML VIAL SQ SCH (22:28)
[2019-06-11] MEDS ORDERED: CEPHALEXIN 500 MG CAP PO SCH
[2019-06-11] MEDS: IPRATROPIUM-ALBUTEROL 3 ML NEB INHALATION SCH ×3 (06:52→18:47)
[2019-06-11] MEDS: HEPARIN SODIUM,PORCINE 5,000 UNIT/ML 1 ML VIAL SQ SCH ×2 (07:06→20:20)
[2019-06-11] MEDS: PANTOPRAZOLE 40 MG TABLET PO SCH ×2 (08:44→17:23)
[2019-06-11] MEDS: ALLOPURINOL 100 MG TAB PO SCH (08:45)
[2019-06-11] MEDS: MULTIVITAMINS, THERA 1 EACH TAB PO SCH (08:45)
[2019-06-11] MEDS: FOLIC ACID 1 MG TAB PO SCH (08:45)
[2019-06-11] MEDS: NIFEdipine XL 30 MG TAB.ER.24 PO SCH (08:45)
[2019-06-11] MEDS: LISINOPRIL 20 MG TAB PO SCH (08:45)
[2019-06-11] MEDS: LABETALOL 200 MG TAB PO SCH ×2 (08:46→20:20)
[2019-06-11] MEDS: SODIUM CHLORIDE 0.9% 1,000 ML IV SCH ×3 (12:00→23:38)
[2019-06-11] MEDS: ATORVASTATIN 40 MG TAB PO SCH (20:20)
--- NOTE | 2019-06-11 21:46 | PN ---
PROGRESS NOTE DATE OF SERVICE: 06/11/2019. This 68-year-old gentleman who was admitted with acute gangrene of the right leg with nonhealing ulcer is awaiting above-knee amputation on the right side by vascular surgery. No chest pain. No palpitations. No fever. EXAM: Alert and oriented times three. Pulse 86, blood pressure 120/60, respirations 16, temperature 97.3, pulse ox 98% on room air. HEENT: Conjunctivae normal. NECK: No JVD. CARDIOVASCULAR: S1, S2 muffled. RESPIRATION: Breath sounds diminished in the bases. No rhonchi. No crackles. ABDOMEN is soft, nontender. LEGS: Multiple ulcers in the right foot. NERVOUS SYSTEM: No focal deficits. LABS: WBC 10.8, hemoglobin 9.6, creatinine 1.26. ASSESSMENT: 1. Acute gangrene of the right leg with nonhealing ulcers and nonhealing postoperative ulcers and failure of outpatient treatment with possible right above-knee amputation, history of left above-knee amputation. 2. Severe peripheral vascular disease. 3. History of cerebrovascular accident, transient ischemic attack. 4. Hypertension. 5. History of cardiac murmur. 6. History of gout. 7. Remote history of nicotine dependence. 8. History of right bunionectomy. 9. Chronic obstructive pulmonary disease. 10.Hypertension. 11.Hyperlipidemia. RECOMMENDATIONS AND DISCUSSION: Recommend to continue current medications, monitoring, management and symptomatic treatment. Currently the patient is stable. We will optimize the fluid and electrolytes balance and repeat creatinine. Otherwise, the patient is stable. We will closely follow with vascular surgery. Further recommendations to follow. MMODL / IJN: [id number] /
--- NOTE | 2019-06-11 22:20 | P.CONS ---
History of Present Illness - Reason for Consult Consult date: 06/11/19 Right foot incision dehiscence and cellulitis Requesting physician: Rocio Heath - Chief Complaint Wound dehiscence right foot x week - History of Present Illness Patient is a 68-year-old male who is status post transmetatarsal amputation right foot done by Dr. Ewing on April 30, 2019 and the patient presented with gangrenous changes to his toes, patient mentioning some of the stitches were removed and one on the stitches subsequently removed the patient i ncision opened up the patient subsequently was sent to the wound care center for further local wound care patient was evaluated by Dr. Foster yesterday with concern for ischemic right leg because of his dehiscence of the incision the patient has been admitted to the hospital for consideration for a right keuzq-vpu-wcig amputation patient has been started on sips and concern for possible cellulitis and infection disease was consulted for further recommendation regarding antibiotic therapy Patient currently denies having any fever or any chills he did have some swelling in his foot but no significant redness and there is no foul-smelling drainage the patient denies it has been antibiotic in the recent past on arrival to the area the patient has been afebrile and his white count has been 10.8 Review of Systems Positive point has been mentioned in the HPI rest of the systems are negative Past Medical History Past Medical History: CVA/TIA, Hypertension Additional Past Medical History / Comment(s): heart murmer as child, pvd, gout History of Any Multi-Drug Resistant Organisms: None Reported Past Surgical History: Heart Catheterization Additional Past Surgical History / Comment(s): left aka 11/2018, right bunionectomy Past Anesthesia/Blood Transfusion Reactions: No Reported Reaction Past Psychological History: No Psychological Hx Reported Smoking Status: Former smoker Past Alcohol Use History: None Reported Past Drug Use History: None Reported - Past Family History Father Family Medical History: Cancer Additional Family Medical History / Comment(s): colon CA Medications and Allergies Home Medications Medication Instructions Recorded Confirmed Type Allopurinol [Zyloprim] 100 mg PO DAILY 04/19/19 06/10/19 History Atorvastatin [Lipitor] 40 mg PO HS 04/19/19 06/10/19 History Folic Acid 1 mg PO HS 04/19/19 06/10/19 History Labetalol [Trandate] 200 mg PO BID 04/19/19 06/10/19 History Lisinopril [Zestril] 20 mg PO DAILY 04/19/19 06/10/19 History Multivit-Min/FA/Lycopen/Lutein 1 tab PO HS 04/19/19 06/10/19 History [Centrum Silver Men Tablet] Aspirin 325 mg PO DAILY tab 05/01/19 06/10/19 Rx Ipratropium-Albuterol Nebulize 3 ml INHALATION RT-TID ampul.neb 05/01/19 06/10/19 Rx [Duoneb 0.5 mg-3 mg/3 ml Soln] Pantoprazole [Protonix] 40 mg PO AC-BID tablet. 05/01/19 06/10/19 Rx Acetaminophen Tab [Tylenol Tab] 650 mg PO Q4H PRN 06/10/19 06/10/19 History NIFEdipine [NIFEdipine ER 30 mg PO DAILY 06/10/19 06/10/19 History (Osmotic)] Oseltamivir [Tamiflu] 75 mg PO DAILY@1900 06/10/19 06/10/19 History Allergies Allergy/AdvReac Type Severity Reaction Status Date / Time Penicillins AdvReac Diarrhea Verified 06/10/19 21:34 Physical Exam Vitals: Vital Signs Temp Pulse Pulse Resp BP BP Pulse Ox 06/11/19 12:35 97.9 F 72 16 105/62 97 06/11/19 12:31 72 06/11/19 12:19 70 06/11/19 07:01 70 06/11/19 06:53 70 06/11/19 04:25 97.9 F 81 18 113/61 96 06/10/19 20:30 97.3 F L 75 16 119/65 98 06/10/19 19:05 74 16 06/10/19 18:49 73 16 96 06/10/19 18:35 97.9 F 81 14 114/65 92 L Intake and Output 06/10/19 06/11/19 06/11/19 22:59 06:59 14:59 Output Total 300 600 500 Balance -300 -600 -500 Output: Urine 300 600 500 Other: Voiding Method Urinal Weight 57 kg 59.5 kg GENERAL DESCRIPTION: An elderly male lying in bed, no distress. No tachypnea or accessory muscle of respiration use. HEENT: Shows Pallor , no scleral icterus. Oral mucous membrane is dry. No pharyngeal erythema or thrush NECK: Trachea central, no thyromegaly. LUNGS: Unlabored breathing. Clear to auscultation anteriorly. No wheeze or crackle. HEART: S1, S2, regular rate and rhythm. No loud murmur ABDOMEN: Soft, no tenderness , guarding or rigidity, no organomegaly EXTREMITIES: Right foot transmetatarsal incision is currently open with slough tissue at the base there is some swelling but no significant redness or any foul-smelling drainage. SKIN: No rash, no masses palpable. NEUROLOGICAL: The patient is awake, alert, oriented x3, mood and affect normal. Results CBC & Chem 7: 06/10/19 18:57 06/10/19 18:57 Labs: Abnormal Lab Results - Last 24 Hours (Table) 06/10/19 06/10/19 Range/Units 18:57 18:57 WBC 10.8 H (3.8-10.6) k/uL RBC 3.30 L (4.30-5.90) m/uL Hgb 9.6 L (13.0-17.5) gm/dL Hct 30.2 L (39.0-53.0) % Neutrophils # 8.2 H (1.3-7.7) k/uL BUN 46 H (9-20) mg/dL Creatinine 1.26 H (0.66-1.25) mg/dL Glucose 161 H (74-99) mg/dL Microbiology - Last 24 Hours (Table) 06/11/19 05:35 Wound Culture - Preliminary Ankle - Right Assessment and Plan Assessment: 1-patient with right foot wound as results of surgical dehiscence and this patient was status post right transmetatarsal amputation with underlying peripheral arterial disease disease is more likely secondary to underlying arterial insufficiency with clinical suspicion for underlying infection 2-patient with penicillin ALLERGY that would limit the number of antibiotic safety use Plan: 1-local wound care with wet-to-dry dressing changes daily and a repeat right [id number] amputation May continue with cefazolin 2 g every 8 hours however wants right [id number]-[id number]-dyuk crepitation is completed patient may not need long-term IV to by therapy We will follow on clinical condition and cultures to further adjust medication if needed Thank you for this consultation will follow this patient with you Time with Patient: Greater than 30
--- NOTE | 2019-06-12 04:35 | P.GSCN ---
History of Present Illness Consult date: 06/11/19 Reason for Consult: right TMA dehiscence and wound History of present illness: 68 year old gentleman with history of severe peripheral arterial disease with history of recent right transmetatarsal amputation for gangrene presented to the hospital with complaints of non healing amputation site from the wound care treatment center. Patient states having been seen in the past by Dr. Ramirez who told him there was nothing to be done for his right foot and due to his poor vasculature he would require an AKA just like his left. Patient denies any current fevers, chills, nausea, vomiting, chest pain or shortness of breath. He states he is ready for amputation if needed. Review of Systems All systems: negative (what is mentioned in the PMH and HPI) Past Medical History Past Medical History: CVA/TIA, Hypertension Additional Past Medical History / Comment(s): heart murmer as child, pvd, gout History of Any Multi-Drug Resistant Organisms: None Reported Past Surgical History: Heart Catheterization Additional Past Surgical History / Comment(s): left aka 11/2018, right bunionectomy Past Anesthesia/Blood Transfusion Reactions: No Reported Reaction Past Psychological History: No Psychological Hx Reported Smoking Status: Former smoker Past Alcohol Use History: None Reported Past Drug Use History: None Reported - Past Family History Father Family Medical History: Cancer Additional Family Medical History / Comment(s): colon CA Medications and Allergies Home Medications Medication Instructions Recorded Confirmed Type Allopurinol [Zyloprim] 100 mg PO DAILY 04/19/19 06/10/19 History Atorvastatin [Lipitor] 40 mg PO HS 04/19/19 06/10/19 History Folic Acid 1 mg PO HS 04/19/19 06/10/19 History Labetalol [Trandate] 200 mg PO BID 04/19/19 06/10/19 History Lisinopril [Zestril] 20 mg PO DAILY 04/19/19 06/10/19 History Multivit-Min/FA/Lycopen/Lutein 1 tab PO HS 04/19/19 06/10/19 History [Centrum Silver Men Tablet] Aspirin 325 mg PO DAILY tab 05/01/19 06/10/19 Rx Ipratropium-Albuterol Nebulize 3 ml INHALATION RT-TID ampul.neb 05/01/19 06/10/19 Rx [Duoneb 0.5 mg-3 mg/3 ml Soln] Pantoprazole [Protonix] 40 mg PO AC-BID tablet. 05/01/19 06/10/19 Rx Acetaminophen Tab [Tylenol Tab] 650 mg PO Q4H PRN 06/10/19 06/10/19 History NIFEdipine [NIFEdipine ER 30 mg PO DAILY 06/10/19 06/10/19 History (Osmotic)] Oseltamivir [Tamiflu] 75 mg PO DAILY@1900 06/10/19 06/10/19 History Allergies Allergy/AdvReac Type Severity Reaction Status Date / Time Penicillins AdvReac Diarrhea Verified 06/10/19 21:34 Surgical - Exam Vital Signs Temp Pulse Resp BP Pulse Ox 97.9 F 81 14 114/65 92 L 06/10/19 18:35 06/10/19 18:35 06/10/19 18:35 06/10/19 18:35 06/10/19 18:35 right TMA site with brown discolored fat, +malodor, no cap refill around wound edges. No purulence or drainage noted. No tenderness to palpation at calf. Non palpable popliteal, DP or PT pulses. left AKA site is well healed and stable - General well developed, no distress, chronically ill - Eyes PERRL, normal ocular movement - Respiratory normal expansion - Cardiovascular Rhythm: regular - Abdomen Abdomen: non tender - Integumentary no rash - Psychiatric oriented to time, oriented to person, oriented to place Results - Labs 06/10/19 18:57 06/10/19 18:57 Microbiology - Last 24 Hours (Table) 06/11/19 05:35 Gram Stain - Preliminary Ankle - Right Wound Culture - Preliminary Assessment and Plan Assessment: 1. Right transmetatarsal amputation dehiscence 2. 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 Severe peripheral arterial disease 4. HTN 5. Tobacco use Plan: Discussion was had with patient at wound care for possible need for above knee amputation which he is agreeable to. I will discuss the case with Dr. Teague who saw him in the office to see if there is any benefit to an angiogram with possible revascularization attempt vs amputation. We will tentatively schedule for amputation but may do angiogram tomorrow prior. Thank you for allowing me to participate in this patients care.
[2019-06-12] MEDS: IPRATROPIUM-ALBUTEROL 3 ML NEB INHALATION SCH ×3 (07:24→20:44)
[2019-06-12] MEDS: FOLIC ACID 1 MG TAB PO SCH (07:31)
[2019-06-12] MEDS: ALLOPURINOL 100 MG TAB PO SCH (07:32)
[2019-06-12] MEDS: HEPARIN SODIUM,PORCINE 5,000 UNIT/ML 1 ML VIAL SQ SCH ×2 (07:32→19:50)
[2019-06-12] MEDS: LABETALOL 200 MG TAB PO SCH ×2 (07:32→22:01)
[2019-06-12] MEDS: PANTOPRAZOLE 40 MG TABLET PO SCH ×2 (07:32→18:02)
[2019-06-12] MEDS: MULTIVITAMINS, THERA 1 EACH TAB PO SCH (07:32)
[2019-06-12] MEDS: LISINOPRIL 20 MG TAB PO SCH (07:33)
[2019-06-12] MEDS: NIFEdipine XL 30 MG TAB.ER.24 PO SCH (07:33)
[2019-06-12 09:16] LABS: Basophils % (A) 0 %; Eosinophils # (A) 0.5 k/uL (0-0.7); Eosinophils % (A) 6 %; HGB 8.8 gm/dL (13.0-17.5); Lymphocytes % (A) 13 %; MCH 29.6 pg (25.0-35.0); MCHC 32.7 g/dL (31.0-37.0); MCV 90.5 fL (80.0-100.0); Mean Platelet Volume 6.2; Monocytes # (A) 0.4 k/uL (0-1.0); Monocytes % (A) 5 %; Neutrophils # (A) 5.5 k/uL (1.3-7.7); Neutrophils % (A) 73 %; Platelet Count 360 k/uL (150-450); RBC 2.99 m/uL (4.30-5.90); RDW 14.4 % (11.5-15.5); WBC 7.5 k/uL (3.8-10.6)
[2019-06-12] MEDS ORDERED: LIDOCAINE 1% INJ 10MG/ML (20 ML MDV) SQ ONE (09:17)
[2019-06-12] MEDS ORDERED: fentaNYL (PF) 50 MCG/ML 2 ML AMP IV ONE (09:18)
[2019-06-12] MEDS ORDERED: MIDAZOLAM 2 MG/2 ML VIAL IV ONE (09:24)
[2019-06-12] MEDS ORDERED: IV FLUID CONTINUATION 700 ML IV ONE (09:25)
[2019-06-12] MEDS ORDERED: IOPAMIDOL-250 100ML BTL INTRAARTER ONE (09:41)
[2019-06-12 09:48] LABS: African American GFR (CKD) >90 (>60 ml/min/1.73 sqM); Anion Gap 9 mmol/L; Blood Urea Nitrogen 25 mg/dL (9-20); Calcium 9.2 mg/dL (8.4-10.2); Carbon Dioxide 23 mmol/L (22-30); Chloride 107 mmol/L (98-107); Glucose 90 mg/dL (74-99); Potassium 4.5 mmol/L (3.5-5.1); Sodium 139 mmol/L (137-145)
--- NOTE | 2019-06-12 09:54 | P.OP ---
Description of Procedure: Indications: 68-year-old gentleman with history of severe peripheral arterial disease with previous left above-knee amputation as well as multiple workup for right lower extremity arterial disease presents to the hospital with transmetatarsal amputation on the right at his nonhealing. He recently had the transmetatarsal amputation a couple weeks ago and has noted that it has not healed and became malodorous and he was admitted to the hospital for antibiotics. He states he has had ABIs in the past as well as a workup and a previous vascular surgeon instructed him that he would need an above-knee amputation. Upon physical examination he was noted that he had no pain at his calf or thigh and may benefit from a below-knee amputation. We needed some visualization of his vascular flow to determine level of amputation. He presents today for angiogram. Preoperative diagnosis: Right lower extremity transmetatarsal amputation wound, critical limb ischemia Postop diagnosis: Right superficial femoral artery occlusion with dense calcification throughout the entirety of the arterial system. Two-vessel runoff to the ankle. Procedure: Aortogram with bilateral lower extremity runoffs via left common femoral artery access under ultrasound guidance Surgeon: Ran Anesthesia: Moderate sedation times 18 minutes Estimated blood loss: 5 mL Complications: None Condition: Stable Findings: Aorta: Densely calcified, patent with mild stenosis at the bifurcation. Iliacs: Bilateral common iliac arteries are densely calcified without significant stenosis. Internal iliac arteries bilaterally with mild stenosis. External iliac arteries bilaterally with dense calcification and approximately 70% stenosis of the right. Femorals: Right femoral artery is patent with calcification noted. Profundus femoris is widely patent and brisk flow with reconstitution of the distal popliteal above-knee. Superficial femoral artery is densely calcified and abrupt occlusion noted just after takeoff with reconstitution above-knee popliteal which is densely calcified with multiple areas of stenosis. Popliteal: Dense calcification of the right popliteal artery with multiple areas of stenosis. Tibials: Tibioperoneal trunk is calcified and occluded with collateralization around to the peroneal and anterior tibial artery. Operative narrative: After written informed consent was obtained the patient all risks benefits competitions were described the patient is brought to the Paediatrician and laid in a supine position. The area of the left groin was prepped and draped in the usual sterile fashion. Local anesthesia with moderate sedation was performed with continuous pulse ox monitoring and EKG monitoring. Utilizing ultrasound the left common femoral artery was visualized and shown to be patent without any significant plaque. Utilizing a multipurpose needle under ultrasound guidance the artery was accessed. Guidewire was placed followed by 4-Afghan sheath. 035 Glidewire was then placed into the aorta followed by a RBI catheter. Angiogram was then obtained of the aorta. Catheter was then placed at the bifurcation and lower extremity runoffs were obtained. Once completed all guidewires, catheters and sheaths were removed and pressure was placed for hemostasis. Patient tolerated procedure well was sent to PACU for recovery
--- NOTE | 2019-06-12 10:56 | IR ---
Fluoroscopy HISTORY: Peripheral vascular occlusive disease 3.6 minutes fluoroscopy time supplied to the referring clinician. 180 intraoperative C-arm images do cument the procedure. See dictated report from vascular surgery.
[2019-06-12] MEDS ORDERED: IV FLUID CONTINUATION 400 ML IV ONE (11:58)
[2019-06-12] MEDS ORDERED: ONDANSETRON 4 MG/2 ML VIAL IVP ONE (12:10)
[2019-06-12] MEDS ORDERED: PROPOFOL 10 MG/ML 20 ML VIAL IV ONE (12:20)
[2019-06-12] MEDS ORDERED: GLYCOPYRROLATE 0.2 MG/ML 2 ML VIAL ONE (12:20)
[2019-06-12] MEDS ORDERED: fentaNYL (PF) 50 MCG/ML 2 ML AMP ONE (12:20)
[2019-06-12] MEDS ORDERED: MIDAZOLAM 2 MG/2 ML VIAL ONE (12:20)
[2019-06-12] MEDS ORDERED: PHENYLEPHRINE-0.9% NACL SYG 1 MG/10 ML SYRINGE ONE (12:20)
[2019-06-12] MEDS ORDERED: LIDOCAINE 1% INJ 10MG/ML (20 ML MDV) ONE (12:20)
[2019-06-12] MEDS ORDERED: NEOSTIGMINE 1 MG/ML 10 ML VIAL ONE (12:20)
[2019-06-12] MEDS ORDERED: ROCURONIUM BROMIDE 10 MG/ML 10 ML VIAL IV ONE (12:20)
[2019-06-12] MEDS ORDERED: LACTATED RINGERS 1,000 ML IV ONE (12:45)
--- NOTE | 2019-06-12 13:52 | P.OP ---
Date of Procedure: 06/12/19 Description of Procedure: Preoperative diagnosis: Right lower extremity dry gangrene status post TMA, significant peripheral arterial disease, [place] 6 Postoperative diagnosis: Same Procedure: Right above-knee amputation Surgeon: Deepti Ewing D.O. EBL: 100 mL IV fluids: See documentation Urine output: [Not measured] Drains: [None] Complications: [None immediately apparent] Condition: [Extubated in the OR, stable to PACU] Operative indication and findings: [The patient is a 68-year-old male who p reviously underwent a left above-knee amputation for peripheral arterial disease. He was initially seen in the office and acquired a right transmetatarsal amputation for gangrene. He has been unable to heal this wound and underwent an angiogram revealing significantly calcific vessels with a long segment occlusion of the superficial femoral artery. Long discussion was had between the patient and my partners regarding need for further amputation, at this time given his flow was recommended and he was willing to go forward with an above-knee amputation. Risks and benefits of the procedure were discussed, he seemingly understood and was willing to proceed.] Procedure in detail: [The patient was taken to the operative suite and placed in supine position. The right lower extremity was prepped and draped in usual sterile fashion. A preprocedure timeout was performed, all parties were in agreement. The leg was marked at the level of the incision site and a fishmouth incision was created. It was carried down through the subcu tissues into the level of the bone. A periosteal elevator was utilized to remove the periosteal tissues and a oscillating saw to transect the bone. The subcutaneous tissues and muscles were divided with electrocautery. The level of the neurovascular bundle was suture-ligated. The leg was removed from the field. At that point hemostasis was obtained with electrocautery. The area was then copiously irrigated. The periosteal tissues were reapproximated with interrupted sutures of 2-0 Vicryl. The fascia was reapproximated with interrupted sutures of 3-0 Vicryl. The skin was approximate with gretel. A dressing was placed. The patient was extubated and transferred to PACU in stable condition having tolerated his procedure well.]
[2019-06-12] MEDS ORDERED: ePHEDrine 50 MG/ML 1 ML AMP IVP ONE (14:14)
[2019-06-12 14:32] LABS: HCT 23.6 % (39.0-53.0); HGB 7.5 gm/dL (13.0-17.5); Hypochromasia Slight; MCH 29.3 pg (25.0-35.0); MCHC 31.8 g/dL (31.0-37.0); MCV 92.2 fL (80.0-100.0); Mean Platelet Volume 6.5; Platelet Count 315 k/uL (150-450); RBC 2.56 m/uL (4.30-5.90); RDW 14.5 % (11.5-15.5); WBC 6.3 k/uL (3.8-10.6)
[2019-06-12] MEDS: SODIUM CHLORIDE 0.9% 1,000 ML IV SCH ×2 (17:49→22:01)
--- NOTE | 2019-06-12 18:11 | PN ---
PROGRESS NOTE DATE OF SERVICE: 06/12/2019 REASON FOR FOLLOWUP: Right transmetatarsal amputation site wound dehiscence and a question of cellulitis. INTERVAL HISTORY: The patient was seen on rounds this morning. The patient is scheduled for a right above-knee amputation. The patient denies having any chest pain or shortness of breath or cough. No nausea or vomiting. No pain to the right foot area. PHYSICAL EXAMINATION: On examination, blood pressure is 83/50 with a pulse of 70, temperature 98. He is 99% on room air. General description is an elderly male lying in bed in no distress. RESPIRATORY SYSTEM: Unlabored breathing. Clear to auscultation anteriorly. HEART: S1, S2. Regular rate and rhythm. ABDOMEN: Soft. No tenderness. EXTREMITIES: Right foot wound is currently dressed up. No obvious drainage on the dressing. LABORATORY DATA: Hemoglobin 7.5, white count 6.3. Wound culture is currently pending. DIAGNOSTIC IMPRESSION AND PLAN: Patient admitted to hospital with right foot transmetatarsal amputation site wound dehiscence, possibly secondary to underlying peripheral arterial disease, for which the patient is status post right [id number] amputation. As the infected part has been removed and no clinical evidence of any bacteremia, he will not need to be on long-term antibiotic therapy. May get a short course of cefazolin perioperatively and monitor his clinical course closely. MMODL / IJN: [id number] /
--- NOTE | 2019-06-12 19:44 | PN ---
PROGRESS NOTE DATE OF SERVICE: 06/12/2019 This 68-year-old gentleman who was admitted with right lower extremity gangrene and severe peripheral vascular disease underwent right above-knee amputation by Dr. Ewing today. No chest pain. No palpitations. No fever. PHYSICAL EXAMINATION: Alert and oriented x3. Pulse 79, blood pressure 120/53, respiration 16, temperature 97.1, pulse ox 100% on room air. HEENT: Conjunctivae normal. NECK: No jugular venous distention. CARDIOVASCULAR SYSTEM: S1, S2 muffled. RESPIRATORY SYSTEM: Breath sounds diminished at the bases. No rhonchi. No crackles. ABDOMEN: Soft, non-tender. LEGS: Status post bilateral above-knee amputation. NERVOUS SYSTEM: No focal deficit. LABS: WBC 6.3, hemoglobin 7.5. ASSESSMENT: 1. Status post right leg above-knee amputation for gangrene of the right leg with nonhealing postoperative ulcer and failure of outpatient treatment. 2. History of left above-knee amputation. 3. Severe peripheral vascular disease. 4. History of cerebrovascular accident, transient ischemic attack. 5. Hypertension. 6. History of cardiac murmur. 7. History of gout. 8. Remote history of nicotine dependence. 9. History of right bunionectomy. 10.Chronic obstructive pulmonary disease. 11.Hyperlipidemia. RECOMMENDATIONS AND DISCUSSION: I recommend to continue current medications, continue with the monitoring, symptomatic treatment. PT/OT evaluation. Possible ECF rehab. Continue the rest of the medications. DVT prophylaxis. Incentive spirometry. Closely follow with Dr. Ewing. Further recommendations to follow. MMODL / IJN: [id number] /
[2019-06-12] MEDS: ATORVASTATIN 40 MG TAB PO SCH (19:46)
[2019-06-13] MEDS: SODIUM CHLORIDE 0.9% 1,000 ML IV SCH ×3 (01:50→20:29)
[2019-06-13 02:09] LABS: Basophils # (A) 0.1 k/uL (0-0.2); Basophils % (A) 0 %; Eosinophils # (A) 0.4 k/uL (0-0.7); Eosinophils % (A) 3 %; Lymphocytes # (A) 0.8 k/uL (1.0-4.8); Lymphocytes % (A) 7 %; MCH 28.6 pg (25.0-35.0); MCV 89.3 fL (80.0-100.0); Mean Platelet Volume 6.6; Monocytes # (A) 0.6 k/uL (0-1.0); Monocytes % (A) 5 %; Neutrophils # (A) 10.4 k/uL (1.3-7.7); Neutrophils % (A) 83 %; Platelet Count 332 k/uL (150-450); RBC 4.26 m/uL (4.30-5.90); RDW 14.6 % (11.5-15.5); WBC 12.5 k/uL (3.8-10.6)
[2019-06-13 02:15] LABS: HGB 12.2 gm/dL (13.0-17.5)
[2019-06-13 06:28] LABS: Basophils % (A) 0 %; Eosinophils # (A) 0.3 k/uL (0-0.7); Eosinophils % (A) 3 %; HCT 35.2 % (39.0-53.0); HGB 11.6 gm/dL (13.0-17.5); Lymphocytes # (A) 0.8 k/uL (1.0-4.8); Lymphocytes % (A) 8 %; MCH 29.6 pg (25.0-35.0); MCV 89.6 fL (80.0-100.0); Mean Platelet Volume 6.1; Monocytes # (A) 0.5 k/uL (0-1.0); Monocytes % (A) 5 %; Neutrophils # (A) 8.8 k/uL (1.3-7.7); Neutrophils % (A) 82 %; Platelet Count 320 k/uL (150-450); RBC 3.93 m/uL (4.30-5.90); RDW 14.8 % (11.5-15.5); WBC 10.6 k/uL (3.8-10.6)
[2019-06-13] MEDS: PANTOPRAZOLE 40 MG TABLET PO SCH ×2 (06:42→10:04)
[2019-06-13 06:44] LABS: African American GFR (CKD) >90 (>60 ml/min/1.73 sqM); Anion Gap 8 mmol/L; Blood Urea Nitrogen 16 mg/dL (9-20); Carbon Dioxide 23 mmol/L (22-30); Chloride 104 mmol/L (98-107); Glucose 87 mg/dL (74-99); Potassium 4.9 mmol/L (3.5-5.1); Sodium 135 mmol/L (137-145)
[2019-06-13] MEDS: IPRATROPIUM-ALBUTEROL 3 ML NEB INHALATION SCH ×3 (08:35→21:14)
--- NOTE | 2019-06-13 09:23 | P.PN ---
Subjective Progress Note Date: 06/13/19 Patient seen and examined. Overall doing well. Pain is relatively well controlled. No chest pains or shortness of breath. No acute distress HEENT normocephalic, atraumatic Heart is regular Lungs are clear Abdomen is soft Right lower extremity dressing is intact, clean and dry. #1 severe peripheral arterial occlusive disease #2 nonhealing right foot wound #3 status post right above-knee amputation for above #4 history of left above-knee amputation Patient is looking quite well overall. We will initiate physical therapy and maintain his pain control. Will plan for a rigid dressing and stump equine manager. Hopeful for discharge tomorrow Objective - Vital Signs Vital signs: Vital Signs Temp 98.1 F 06/13/19 08:00 Pulse 88 06/13/19 08:51 Resp 16 06/13/19 08:00 BP 140/67 06/13/19 08:00 Pulse Ox 93 L 06/13/19 08:00 Intake & Output 06/12/19 06/13/19 06/13/19 18:59 06:59 18:59 Intake Total 1810 630 Output Total 100 700 Balance 1710 -70 Weight 55 kg Intake: IV 1500 Intake, IV Titration 200 Amount Sodium Chloride 0.9% 1, 150 000 ml @ 20 mls/hr IV . Q24H JULIO Rx#:[id number] ceFAZolin 2 gm In Sodium 50 Chloride 0.9% 50 ml @ 100 mls/hr IVPB Q8HR JULIO Rx# :[id number] Oral 120 Blood Product 310 310 Rc As-1 Unit 0 310 [id number] Rc As-1 Unit 310 [id number] Output: Urine 700 Estimated Blood Loss 100 Other: Voiding Method Urinal Urinal - Labs CBC & Chem 7: 06/13/19 05:41 06/13/19 05:41 Labs: Abnormal Lab Results - Last 24 Hours (Table) 06/12/19 06/12/19 06/12/19 Range/Units 08:31 14:08 14:08 WBC (3.8-10.6) k/uL RBC 2.56 L (4.30-5.90) m/uL Hgb 7.5 L (13.0-17.5) gm/dL Hct 23.6 L (39.0-53.0) % Neutrophils # (1.3-7.7) k/uL Lymphocytes # (1.0-4.8) k/uL Sodium (137-145) mmol/L BUN 25 H (9-20) mg/dL Crossmatch See Detail 06/13/19 06/13/19 06/13/19 Range/Units 02:00 05:41 05:41 WBC 12.5 H (3.8-10.6) k/uL RBC 4.26 L 3.93 L (4.30-5.90) m/uL Hgb 12.2 L D 11.6 L (13.0-17.5) gm/dL Hct 38.0 L 35.2 L (39.0-53.0) % Neutrophils # 10.4 H 8.8 H (1.3-7.7) k/uL Lymphocytes # 0.8 L 0.8 L (1.0-4.8) k/uL Sodium 135 L (137-145) mmol/L BUN (9-20) mg/dL Crossmatch
[2019-06-13] MEDS: MULTIVITAMINS, THERA 1 EACH TAB PO SCH (10:05)
[2019-06-13] MEDS: LISINOPRIL 20 MG TAB PO SCH (10:05)
[2019-06-13] MEDS: FOLIC ACID 1 MG TAB PO SCH (10:06)
[2019-06-13] MEDS: ALLOPURINOL 100 MG TAB PO SCH (10:06)
[2019-06-13] MEDS: LABETALOL 200 MG TAB PO SCH ×2 (10:07→20:32)
[2019-06-13] MEDS: NIFEdipine XL 30 MG TAB.ER.24 PO SCH (10:07)
[2019-06-13] MEDS: HEPARIN SODIUM,PORCINE 5,000 UNIT/ML 1 ML VIAL SQ SCH ×2 (10:09→20:33)
--- NOTE | 2019-06-13 16:00 | CDI ---
Documentation Clarification Form Date: 06/13/2019 3:57:58 PM From: Helene Jaimes RN, CCDS Admit Date: 06/10/2019 5:38:00 PM Patient Name: Misael Mcdaniels Visit Number: [id number] ATTENTION: The Clinical Documentation Specialists (CDI) and [facility] Coding Staff appreciate your assistance in clarifying documentation. Please respond to the clarification below the line at the bottom and electronically sign. The CDI & [facility] Coding staff will review the response and follow-up if needed. Please note: Queries are made part of the Legal Health Record. If you have any questions, please contact the author of this message via ITS. Dr. Rocio Heath Patient initially had and elevated BUN and Creatinine on Admission with a Low GFR that has recovered. Please Provide clinical significance. History/Risk Factors: severe PVD, HTN, 05/01/19 Patients baseline BUN/CR/GFR: 14/.83/>90 Clinical Indicators: Current BUN: 46//16 Cr: 1.26/.98/.81 GFR: 66/>90/>90 Treatment: IVF: none 2 units PC transfused In order to capture the severity of condition, please clarify if the condition signifies: Acute renal failure, Please specify etiology (if known): Cortical Necrosis Medullary Necrosis Tubular Necrosis Acute kidney injury Other, please specify Unable to determine (Last Revision: November 2017) Acute renal failure, Please specify etiology (if known): Tubular Necrosis MTDD
--- NOTE | 2019-06-13 16:07 | CDI ---
Documentation Clarification Form Date: 06/13/2019 4:01:02 PM From: Helene Jaimes RN, CCDS Admit Date: 06/10/2019 5:38:00 PM Patient Name: Misael Mcdaniels Visit Number: [id number] ATTENTION: The Clinical Documentation Specialists (CDI) and [facility] Coding Staff appreciate your assistance in clarifying documentation. Please respond to the clarification below the line at the bottom and electronically sign. The CDI & [facility] Coding staff will review the response and follow-up if needed. Please note: Queries are made part of the Legal Health Record. If you have any questions, please contact the author of this message via ITS. Dr. Rocio Heath A low Hgb on admission was noted and 2 units of PRBC were given with improvement. Please provide the clinical significance to accurately reflect your patients severity of condition and clarification is needed. History/Risk Factors: Acute gangrene of right leg with nonhealing ulcers post-operative. AKA this admission, hx of left AKA, severe PVD, HTN, COPD Clinical indicators: Hemoglobin: 9.6/8.8/7.5/12.2/11.6 Hematocrit: 30.2/27/23.6/38/35.2 Treatment: 2 units PRBC's transfused Labs Monitored In order to capture the severity of condition, please clarify the above finding and treatment and etiology if known: Acute blood loss anemia Acute on chronic blood loss anemia Chronic blood loss anemia Iron deficiency anemia Nutritional anemia Anemia of chronic disease Unable to determine Other, please specify (Last Revision: May 2017) Anemia of chronic disease MTDD
--- NOTE | 2019-06-13 17:56 | PN ---
PROGRESS NOTE DATE OF SERVICE: 06/13/2019. REASON FOR FOLLOWUP: Right transmetatarsal amputation wound dehiscence and a question of cellulitis. INTERVAL HISTORY: The patient is currently afebrile. The patient is breathing comfortably. Denies having any chest pain, no cough, no nausea, vomiting or abdominal pain or pain to the right AKA site. PHYSICAL EXAMINATION: Blood pressure 120/58 with a pulse of 92, temperature 98. General description is an elderly male lying in bed in no distress. Respiratory system: Unlabored breathing. Clear to auscultation anteriorly. Heart S1, S2. Regular rate and rhythm. Abdomen soft. No tenderness. Right AKA wound currently dressed up. No obvious drainage on the dressing. LABS: White count 10.6, creatinine 0.81. DIAGNOSTIC IMPRESSION AND PLAN: Patient with right transmetatarsal amputation wound dehiscence. The patient currently with no evidence of secondary bacterial infection. Antibiotic can be safely discontinued. We will monitor the patient closely off antibiotic therapy. Continue supportive care. MMODL / IJN: [id number] /
--- NOTE | 2019-06-13 18:53 | PN ---
PROGRESS NOTE DATE OF SERVICE: 06/13/2019 This 68-year-old gentleman who was admitted after right leg above-knee amputation, is being closely monitored. No chest pain, no palpitations, PT/OT are evaluating the patient and possible ECF rehab is being considered. No chest pain. No palpitations. No fever. EXAM: Alert and oriented x3. Pulse is 72. Blood pressure 120/58, respirations 17, temperature 98 degrees, pulse ox 93% on room air. HEENT: Conjunctivae normal. NECK: No JVD. CARDIOVASCULAR: S1, S2 muffled. RESPIRATION: Breath sounds diminished in the bases. No rhonchi. No crackles. Abdomen is soft, nontender. LEGS status post right above-knee amputation. NERVOUS SYSTEM: No focal deficits. LAB STUDIES: WBC 10.6. Hemoglobin 11.6, sodium 135. ASSESSMENT: 1. Status post right leg above-knee amputation for gangrene of the right leg with history of nonhealing postoperative ulcer with failure of outpatient treatment. 2. History of left above-knee amputation. 3. History of peripheral vascular disease. 4. History of cerebrovascular accident, transient ischemic attack. 5. Hypertension. 6. History of cardiac murmur. 7. History of gout. 8. Remote history of nicotine dependence. 9. History of right bunionectomy. 10.Chronic obstructive pulmonary disease. 11.Hyperlipidemia. RECOMMENDATIONS AND DISCUSSION: Continue current medications, continue with monitoring, management and symptomatic treatment. Otherwise, at this time, I recommend continue the current medications, continue with monitoring. Otherwise, I would also continue with continue with current medications, continue with monitoring, PT/OT evaluation, possible ECF rehab. Closely follow with vascular surgery. Further recommendations to follow. MMODL / IJN: [id number] /
[2019-06-13 20:15] LABS: Basophils # (A) 0.1 k/uL (0-0.2); Basophils % (A) 1 %; Eosinophils # (A) 0.3 k/uL (0-0.7); Eosinophils % (A) 3 %; HCT 34.3 % (39.0-53.0); HGB 11.2 gm/dL (13.0-17.5); Lymphocytes # (A) 0.8 k/uL (1.0-4.8); Lymphocytes % (A) 9 %; MCH 29.6 pg (25.0-35.0); MCHC 32.7 g/dL (31.0-37.0); MCV 90.4 fL (80.0-100.0); Mean Platelet Volume 6.8; Monocytes # (A) 0.7 k/uL (0-1.0); Monocytes % (A) 8 %; Neutrophils # (A) 7.1 k/uL (1.3-7.7); Neutrophils % (A) 77 %; Platelet Count 299 k/uL (150-450); RDW 14.6 % (11.5-15.5); WBC 9.2 k/uL (3.8-10.6)
[2019-06-13] MEDS: ATORVASTATIN 40 MG TAB PO SCH (20:32)
[2019-06-14 01:33] VITALS: RESP 16
[2019-06-14] MEDS: SODIUM CHLORIDE 0.9% 1,000 ML IV SCH ×2 (06:13→10:28)
[2019-06-14] MEDS: PANTOPRAZOLE 40 MG TABLET PO SCH (06:15)
[2019-06-14 07:17] LABS: Basophils % (A) 0 %; Eosinophils # (A) 0.3 k/uL (0-0.7); Eosinophils % (A) 4 %; HCT 33.2 % (39.0-53.0); Lymphocytes # (A) 0.7 k/uL (1.0-4.8); Lymphocytes % (A) 8 %; MCH 29.7 pg (25.0-35.0); MCV 90.2 fL (80.0-100.0); Mean Platelet Volume 6.1; Monocytes # (A) 0.6 k/uL (0-1.0); Monocytes % (A) 7 %; Neutrophils # (A) 6.6 k/uL (1.3-7.7); Neutrophils % (A) 78 %; Platelet Count 286 k/uL (150-450); RBC 3.69 m/uL (4.30-5.90); RDW 14.5 % (11.5-15.5); WBC 8.5 k/uL (3.8-10.6)
[2019-06-14 07:40] LABS: African American GFR (CKD) >90 (>60 ml/min/1.73 sqM); Anion Gap 9 mmol/L; Blood Urea Nitrogen 12 mg/dL (9-20); Calcium 8.8 mg/dL (8.4-10.2); Carbon Dioxide 23 mmol/L (22-30); Chloride 106 mmol/L (98-107); Glucose 98 mg/dL (74-99); Potassium 4.4 mmol/L (3.5-5.1); Sodium 138 mmol/L (137-145)
[2019-06-14] MEDS: LISINOPRIL 20 MG TAB PO SCH (08:16)
[2019-06-14] MEDS: FOLIC ACID 1 MG TAB PO SCH (08:16)
[2019-06-14] MEDS: NIFEdipine XL 30 MG TAB.ER.24 PO SCH (08:16)
[2019-06-14] MEDS: MULTIVITAMINS, THERA 1 EACH TAB PO SCH (08:16)
[2019-06-14] MEDS: LABETALOL 200 MG TAB PO SCH (08:17)
[2019-06-14] MEDS: HEPARIN SODIUM,PORCINE 5,000 UNIT/ML 1 ML VIAL SQ SCH (08:17)
[2019-06-14] MEDS: ALLOPURINOL 100 MG TAB PO SCH (08:17)
[2019-06-14] MEDS: IPRATROPIUM-ALBUTEROL 3 ML NEB INHALATION SCH ×2 (08:31→12:59)
[2019-06-14 11:32] VITALS: BMI 20.9
[2019-06-14 11:56] VITALS: BP 121/56; TEMP 98
[2019-06-14 13:08] VITALS: PULSE 76
--- NOTE | 2019-06-14 14:22 | P.DS ---
Providers Date of admission: 06/10/19 17:38 Expected date of discharge: 06/14/19 Attending physician: Rocio Heath Consults: 06/10/19 18:24 Consult Physician Routine Consulting Provider: Harvey Tong Consult Reason/Comments: pad Do you want consulting provider notified?: Yes 06/10/19 18:26 Consult Physician Routine Consulting Provider: Ludmila Ayon Consult Reason/Comments: toe infection Do you want consulting provider notified?: Yes Primary care physician: Stated None Hospital Course: Final diagnosis Status post right leg [id number] amputation for gangrene of the right leg with history of non-healing postoperative ulcer with failure of outpatient treatment History of left garui-whz-[id number] amputation History of peripheral vascular disease history of CVA, TIA Hypertension History of cardiac murmur history of gout Remote history of nicotine dependence history of right bunionectomy Chronic obstructive pulmonary disease Hyperlipidemia Discharge disposition Patient is being discharged in a stable condition with guarded prognosis to [facility] for continued PT/OT therapy. Total time taken is 35 minutes. History of present illness This is a 68-year-old male who was recently admitted after right leg [id number]-[id number] amputation with gangrene of the right leg with a history of non- healing postoperative ulcers with failure of outpatient treatment and was being closely monitored. Multiple medical consultations were following. Patient will follow-up with primary care provider as well as vascular surgery and wound care upon discharge. Infectious disease was following and patient was treated adequately with antibiotics and will discontinue antibiotics upon discharge. Patient will follow-up with wound care clinic in the outpatient setting. Currently patient's condition is stable with much improvement and is ready for discharge to [facility] for continued PT/OT therapy. Patient denies any chest pain, shortness of breath, or palpitations at this time. Patient is afebrile. Patient denies any nausea or vomiting and is tolerating diet. Guarded prognosis. On exam vital signs are stable. Temp is 98F, pulse is 67, respirations are 16, blood pressure is 121/56, oxygen saturation is 94% on room air. Cardio S1 and S2 are muffled. Respiratory system shows diminished breath sounds at the bases with no rhonchi or crackles noted. Abdomen is soft and nontender. Nervous system shows no focal deficits with mild diffuse weakness. Please refer to medication reconciliation sheet for a list of medications. Patient Condition at Discharge: Fair Plan - Discharge Summary Discharge Rx Participant: No New Discharge Prescriptions: New Nystatin 100,000Unit/gm Cream [Mycostatin Cream] 1 applic TOPICAL BID PRN applic PRN Reason: Rash NIFEdipine XL [Procardia XL] 30 mg PO DAILY tab.er.24 Continue Lisinopril [Zestril] 20 mg PO DAILY Labetalol [Trandate] 200 mg PO BID Multivit-Min/FA/Lycopen/Lutein [Centrum Silver Men Tablet] 1 tab PO HS Folic Acid 1 mg PO HS Atorvastatin [Lipitor] 40 mg PO HS Allopurinol [Zyloprim] 100 mg PO DAILY Aspirin 325 mg PO DAILY tab Ipratropium-Albuterol Nebulize [Duoneb 0.5 mg-3 mg/3 ml Soln] 3 ml INHALATION RT-TID ampul.neb Pantoprazole [Protonix] 40 mg PO AC-BID tablet. Acetaminophen Tab [Tylenol] 650 mg PO Q4H PRN PRN Reason: Pain Discontinued Oseltamivir [Tamiflu] 75 mg PO DAILY@1900 NIFEdipine [NIFEdipine ER (Osmotic)] 30 mg PO DAILY Discharge Medication List Allopurinol [Zyloprim] 100 mg PO DAILY 04/19/19 [History] Atorvastatin [Lipitor] 40 mg PO HS 04/19/19 [History] Folic Acid 1 mg PO HS 04/19/19 [History] Labetalol [Trandate] 200 mg PO BID 04/19/19 [History] Lisinopril [Zestril] 20 mg PO DAILY 04/19/19 [History] Multivit-Min/FA/Lycopen/Lutein [Centrum Silver Men Tablet] 1 tab PO HS 04/19/19 [History] Aspirin 325 mg PO DAILY tab 05/01/19 [Rx] Ipratropium-Albuterol Nebulize [Duoneb 0.5 mg-3 mg/3 ml Soln] 3 ml INHALATION RT-TID ampul.neb 05/01/19 [Rx] Pantoprazole [Protonix] 40 mg PO AC-BID tablet. 05/01/19 [Rx] Acetaminophen Tab [Tylenol] 650 mg PO Q4H PRN 06/10/19 [History] NIFEdipine XL [Procardia XL] 30 mg PO DAILY tab.er.24 06/14/19 [Rx] Nystatin 100,000Unit/gm Cream [Mycostatin Cream] 1 applic TOPICAL BID PRN applic 06/14/19 [Rx] Follow up Appointment(s)/Referral(s): Zuhair Martinez MD [REFERRING] - 1-2 Days Deepti Ewing DO [STAFF PHYSICIAN] - 1 Week Ludmila Ayon MD [STAFF PHYSICIAN] - 1 Week Ambulatory/Diagnostic Orders: Complete Blood Count w/diff [LAB.AMB] Time Frame: 3 Days, Location: None Selected Activity/Diet/Wound Care/Special Instructions: Patient is going to [facility] Activity as tolerated Follow-up with primary care provider upon discharge Continue current heart healthy diet Repeat labs in 2-3 days Follow-up with wound care center Follow-up with vascular surgery
--- NOTE | 2019-06-14 14:22 | P.PN ---
Subjective Progress Note Date: 06/14/19 Patient seen and examined. Overall doing well. Patient was at the bedside today. Reports pain well-controlled. Denies any chest pain or shortness of breath. WBC 8.5, hemoglobin 11.0, hematocrit 33.2. Objective - Vital Signs Vital signs: Vital Signs Temp 98.0 F 06/14/19 11:54 Pulse 76 06/14/19 13:07 Resp 16 06/14/19 11:54 BP 121/56 06/14/19 11:54 Pulse Ox 94 L 06/14/19 11:54 Intake & Output 06/13/19 06/14/19 06/14/19 18:59 06:59 18:59 Intake Total 120 240 Output Total 300 550 275 Balance -300 -430 -35 Weight 53.5 kg 53.5 kg Intake: Oral 120 240 Output: Urine 300 550 275 Other: Voiding Method Urinal Urinal # Voids 1 - Exam General appearance: The patient is alert, oriented, in no acute distress. HET: Head is normocephalic and atraumatic. Pupils are equal and reactive. Oropharynx is clear without lesions. Neck: Supple without lymphadenopathy. Trachea midline. Heart: S1 S2. Regular rate and rhythm. Lungs: No crackles or wheezes are heard. Abdomen: Soft, nontender, nondistended with bowel sounds. No peritoneal signs. No palpable organomegaly or masses. Extremities: Normal skin color, right lower extremity dressing clean, dry and intact, wrapped with Juan Carlos bandage. +2 palpable femoral pulse. Neurological: No focal deficits. Strength and sensation are grossly intact. - Labs CBC & Chem 7: 06/14/19 06:42 06/14/19 06:42 Labs: Abnormal Lab Results - Last 24 Hours (Table) 06/13/19 06/14/19 Range/Units 19:53 06:42 RBC 3.80 L 3.69 L (4.30-5.90) m/uL Hgb 11.2 L 11.0 L (13.0-17.5) gm/dL Hct 34.3 L 33.2 L (39.0-53.0) % Lymphocytes # 0.8 L 0.7 L (1.0-4.8) k/uL Microbiology - Last 24 Hours (Table) 06/11/19 05:35 Gram Stain - Final Ankle - Right Wound Culture - Final Assessment and Plan Assessment: #1 severe peripheral arterial occlusive disease #2 nonhealing right foot wound #3 status post right above-knee amputation for above #4 history of left above-knee amputation Plan: Patient continues to do well. Awaiting physical therapy to work with patient. Maintain pain control. Await further recommendations from Dr. Ewing and Ran on discharge The above dictated assessment and findings were discussed with Dr. Ewing. The impression and plan of care have been directed as dictated.
--- NOTE | 2019-06-14 18:30 | PN ---
PROGRESS NOTE DATE OF SERVICE: 06/14/2019 REASON FOR FOLLOWUP: Right foot transmetatarsal wound dehiscence and a question of cellulitis. INTERVAL HISTORY: The patient is currently afebrile. Patient has been breathing comfortably. Patient denies having any chest pain. No cough. No nausea, vomiting. NO abdominal pain. Pain to the right leg incision site. PHYSICAL EXAMINATION: Blood pressure 121/56, pulse of 67, temperature 98, he is 94% on room air. General description is an elderly male lying in bed in no distress. Respiratory system: Unlabored breathing. Clear to auscultation anteriorly. Heart S1, S2. Regular rate and rhythm. Abdomen soft, no tenderness. LABS: Hemoglobin is 11, white count 8.5, BUN of 10, creatinine 0.74. DIAGNOSTIC IMPRESSION AND PLAN: Patient with right transmetatarsal incision dehiscence with concern for cellulitis status post right [id number]-[id number] amputation currently with no clinical focus of infection. Cefazolin to be discontinued. Monitor the patient closely off antibiotic therapy. Continue supportive care. MMODL / IJN: [id number] /
--- NOTE | 2019-06-18 15:05 | CDI ---
Documentation Clarification Form Date: 06/18/19 From: Kiah Rinaldi Phone: If you have a question about this query, please contact Heather Dunn, Produce Inspector at [phone] between 8am and 5pm. Admit Date: 06/10/19 Discharge Date: 06/14/19 Patient Name: Misael Mcdaniels Visit Number: [id number] ATTENTION: The Clinical Documentation Specialists (CDI) and [facility] Coding Staff appreciate your assistance in clarifying documentation. Please respond to the clarification below the line at the bottom and electronically sign. The CDI & [facility] Coding staff will review the response and follow-up if needed. Please note: Queries are made part of the Legal Health Record. If you have any questions, please contact the author of this message via ITS. Dear Dr. Deepti Ewing, Documentation in the Operative Report included: Right above knee amputation History/Risk factors: Previous right TMA, Left AKA, COPD, chronic anemia, HTN, hx smoking Pre-Operative Diagnosis: Right lower extremity dry gangrene status post TMA, significant peripheral arterial disease, [place] 6 Postoperative Diagnosis: Same Clinical Indicators: right foot s/p multiple amputations of toes and pulses diminished bilaterally, cold to touch. Treatment: Right above knee amputation In order to capture the severity of condition, please specify the following the level of the amputation: High (proximal third) Mid (middle third) Low (distal third) mid MTDD
--- NOTE | 2019-06-18 15:19 | CDI ---
Documentation Clarification Form Date: 06/18/19 From: Kiah Rinaldi Phone: If you have a question about this query, please contact Heather Dunn, Clerical Associate at [phone] between 8am and 5pm. Admit Date: 06/10/19 Discharge Date: 06/14/19 Patient Name: Misael Mcdaniels Visit Number: [id number] ATTENTION: The Clinical Documentation Specialists (CDI) and [facility] Coding Staff appreciate your assistance in clarifying documentation. Please respond to the clarification below the line at the bottom and electronically sign. The CDI & [facility] Coding staff will review the response and follow-up if needed. Please note: Queries are made part of the Legal Health Record. If you have any questions, please contact the author of this message via ITS. Dear Dr. Rocio Heath, Peripheral vascular disease is documented in the H&P, 06/11 consult, PNs- 06/11, 06/12, 06/13; procedure note and DS. History/Risk Factors: Clinical Indicators: Acute gangrene of the right leg with non-healing ulcers, non-healing postoperative ulcers and failure of OP treatment. Doppler/Radiology Reports: Right superficial femoral artery occlusion with dense calcification throughout the entirety of the arterial system. Treatment: Right above knee amputation Consult: ID, Surgery In your professional opinion, is this atherosclerosis: Yes No Other, please specify Unable to determine Yes MTDD
== END 2019-06-14 17:07 | DRG 474 ==
LOC: 4MS4W 17:38 → 3SCARD 06-12 15:38
PROVIDERS: ADMIT Hospitalist; ATTEND Hospitalist
PROC: 05HC33Z Insertion of Infusion Device into Left Basilic Vein, Percutaneous Approach (ICD-10-PCS; 2019-06-11)
PROC: 06HN33Z Insertion of Infusion Device into Left Femoral Vein, Percutaneous Approach (ICD-10-PCS; 2019-06-12)
PROC: 30230N1 Transfusion of Nonautologous Red Blood Cells into Peripheral Vein, Open Approach (ICD-10-PCS; principal; 2019-06-12 09:20)
PROC: B41D1ZZ Fluoroscopy of Aorta and Bilateral Lower Extremity Arteries using Low Osmolar Contrast (ICD-10-PCS; 2019-06-12 09:20)
PROC: 0Y6C0Z2 Detachment at Right Upper Leg, Mid, Open Approach (ICD-10-PCS; 2019-06-12 09:20)
DX: T87.89 Other complications of amputation stump (principal); N17.0 Acute kidney failure with tubular necrosis; L03.115 Cellulitis of right lower limb; I70.261 Atherosclerosis of native arteries of extremities with gangrene, right leg; L97.419 Non-pressure chronic ulcer of right heel and midfoot with unspecified severity; T87.43 Infection of amputation stump, right lower extremity; T87.81 Dehiscence of amputation stump; J44.9 Chronic obstructive pulmonary disease, unspecified; D63.8 Anemia in other chronic diseases classified elsewhere; I10 Essential (primary) hypertension; I99.8 Other disorder of circulatory system; E78.5 Hyperlipidemia, unspecified; M10.9 Gout, unspecified; Z79.82 Long term (current) use of aspirin; Z79.899 Other long term (current) drug therapy; Z87.891 Personal history of nicotine dependence; Z89.421 Acquired absence of other right toe(s); Z89.612 Acquired absence of left leg above knee; Z86.73 Personal history of transient ischemic attack (TIA), and cerebral infarction without residual deficits; Z98.890 Other specified postprocedural states; Z88.0 Allergy status to penicillin; Z80.0 Family history of malignant neoplasm of digestive organs; Y83.5 Amputation of limb(s) as the cause of abnormal reaction of the patient, or of later complication, without mention of misadventure at the time of the procedure
CPT/HCPCS: 36200; 36410; 75625; 75716; 76937; 80048; 80053; 83615; 83735; 85025; 85027; 85610; 86850; 86900; 86901; 86920; 87070; 87075; 87077; 87186; 87205; 93005; 94640; 94760

== ENCOUNTER 2019-09-27 09:53 | Emergency (ER) | payer MEDICARE, BC, OTHER ==
[2019-09-27 10:01] VITALS: TEMP 97.4
[2019-09-27] MEDS ORDERED: SODIUM CHLORIDE 0.9% 500 ML 500 ML IV STA (10:11)
[2019-09-27] MEDS ORDERED: IPRATROPIUM-ALBUTEROL 3 ML NEB INHALATION STA (10:12)
[2019-09-27 10:29] LABS: Glucose,Whole Blood 101 mg/dL (75-99)
[2019-09-27 10:40] LABS: Basophils % (A) 0 %; Eosinophils # (A) 0.5 k/uL (0-0.7); Eosinophils % (A) 7 %; HCT 41.8 % (39.0-53.0); HGB 13.8 gm/dL (13.0-17.5); Lymphocytes # (A) 0.7 k/uL (1.0-4.8); Lymphocytes % (A) 8 %; MCH 29.6 pg (25.0-35.0); MCV 89.6 fL (80.0-100.0); Mean Platelet Volume 7.7; Monocytes # (A) 0.5 k/uL (0-1.0); Monocytes % (A) 6 %; Neutrophils # (A) 5.9 k/uL (1.3-7.7); Neutrophils % (A) 76 %; Platelet Count 277 k/uL (150-450); RBC 4.66 m/uL (4.30-5.90); RDW 13.9 % (11.5-15.5); WBC 7.8 k/uL (3.8-10.6)
[2019-09-27 10:48] LABS: Albumin 4.4 g/dL (3.5-5.0); Calcium 9.4 mg/dL (8.4-10.2); Potassium 5.1 mmol/L (3.5-5.1); Total Bilirubin 0.6 mg/dL (0.2-1.3)
[2019-09-27 11:06] VITALS: RESP 18
--- NOTE | 2019-09-27 11:13 | ED ---
Seizure HPI - General Source: patient, EMS, RN notes reviewed Mode of arrival: EMS Limitations: physical limitation <Franki Law - Last Filed: 09/27/19 12:06> <Dano Arredondo - Last Filed: 09/27/19 12:10> - General Chief Complaint: Seizure Stated Complaint: Seizure Time Seen by Provider: 09/27/19 10:04 - History of Present Illness Initial Comments: This is a 68-year-old male presents emergency Department with chief complaint of seizure. Patient was brought from [facility] home via EMS and reports that he had a 3 minute long seizure. Patient has no history of seizures. At this time patient is awake alert and oriented has no complaints. He denies headache, dizziness, blurred vision,. Patient denies any medication changes. Patient states that he recently was treated for pneumonia states that symptoms are greatly improved he occasionally still needs breathing treatment. Patient denies any other com plaints. (Franki Law) - Related Data Home Medications Medication Instructions Recorded Confirmed Allopurinol [Zyloprim] 100 mg PO DAILY@0800 04/19/19 09/27/19 Atorvastatin [Lipitor] 40 mg PO DAILY@1700 04/19/19 09/27/19 Folic Acid 1 mg PO DAILY@1700 04/19/19 09/27/19 Lisinopril [Zestril] 20 mg PO DAILY@0800 04/19/19 09/27/19 Aspirin 325 mg PO DAILY@0800 09/27/19 09/27/19 Magnesium Hydroxide [Milk of 2,400 mg PO DAILY PRN 09/27/19 09/27/19 Magnesia] Multivitamins, Thera [Multivitamin 1 tab PO DAILY@0800 09/27/19 09/27/19 (formulary)] NIFEdipine XL [Procardia XL] 30 mg PO DAILY@0800 09/27/19 09/27/19 Pantoprazole [Protonix] 40 mg PO BID@0800,1700 09/27/19 09/27/19 Previous Rx's Medication Instructions Recorded Ipratropium-Albuterol Nebulize 3 ml INHALATION RT-TID ampul.neb 05/01/19 [Duoneb 0.5 mg-3 mg/3 ml Soln] Allergies Allergy/AdvReac Type Severity Reaction Status Date / Time Penicillins AdvReac Diarrhea Verified 09/27/19 11:50 Review of Systems ROS Other: All systems not noted in ROS Statement are negative. <Franki Law - Last Filed: 09/27/19 12:06> ROS Other: All systems not noted in ROS Statement are negative. <Dano Arredondo - Last Filed: 09/27/19 12:10> ROS Statement: Those systems with pertinent positive or pertinent negative responses have been documented in the HPI. Past Medical History Past Medical History: CVA/TIA, Hypertension Additional Past Medical History / Comment(s): heart murmer as child, pvd, gout History of Any Multi-Drug Resistant Organisms: None Reported Date of last positivie culture/infection: 06/10/19 MDRO Source:: ESBL FOOT Past Surgical History: Heart Catheterization Additional Past Surgical History / Comment(s): left aka 11/2018, right bunionectomy, double lower extremity amputation Past Anesthesia/Blood Transfusion Reactions: No Reported Reaction Past Psychological History: No Psychological Hx Reported Smoking Status: Former smoker Past Alcohol Use History: None Reported Past Drug Use History: None Reported - Past Family History Father Family Medical History: Cancer Additional Family Medical History / Comment(s): colon CA <Franki Law - Last Filed: 09/27/19 12:06> General Exam Limitations: physical limitation General appearance: alert, in no apparent distress Head exam: Present: atraumatic, normocephalic, normal inspection Eye exam: Present: normal appearance, PERRL, EOMI. Absent: scleral icterus, conjunctival injection, periorbital swelling ENT exam: Present: normal exam, normal oropharynx (No tongue injury noted), mucous membranes moist Neck exam: Present: normal inspection, full ROM. Absent: tenderness, meningismus, lymphadenopathy Respiratory exam: Present: normal lung sounds bilaterally. Absent: respiratory distress, wheezes, rales, rhonchi, stridor Cardiovascular Exam: Present: regular rate, normal rhythm, normal heart sounds. Absent: systolic murmur, diastolic murmur, rubs, gallop, clicks Extremities exam: Present: other (Bilateral lower extremity amputations) Neurological exam: Present: alert, oriented X3, CN II-XII intact Skin exam: Present: warm, dry, intact, normal color. Absent: rash <Dedoe,Franki M - Last Filed: 09/27/19 12:06> Course Vital Signs 09/27/19 09/27/19 09/27/19 09:56 10:27 10:30 Temperature 97.4 F L Pulse Rate 84 88 80 Respiratory 19 18 Rate Blood Pressure 109/61 113/66 O2 Sat by Pulse 100 99 Oximetry 09/27/19 09/27/19 10:36 11:53 Temperature Pulse Rate 88 93 Respiratory 18 Rate Blood Pressure 120/70 O2 Sat by Pulse 97 Oximetry Medical Decision Making - Lab Data Result diagrams: 09/27/19 10:25 09/27/19 10:25 <Franki Law - Last Filed: 09/27/19 12:06> - Lab Data Result diagrams: 09/27/19 10:25 09/27/19 10:25 <Dano Arredondo - Last Filed: 09/27/19 12:10> - Medical Decision Making CT shows 3 lesions in the brain with one having some vasogenic edema. Patient was given Decadron, At this time case discussed with [facility] accepts patient for transfer. (Franki Law) 68-year-old male with new onset seizure. Patient evaluated, resting comfortably, stable vitals, he is alert and oriented with a GCS of 15. He has a nonfocal neurologic exam in this patient with bilateral amputations. He has CT showing multiple lesions including the largest 7 mm right frontal lobe with vasogenic edema. There is no midline shift. He is given Keppra and Decadron in the emergency department. He will be transferred for further evaluation of the suspected metastatic lesions to the brain. He has no primary cancer diagnosis. Case is discussed with the ER physician at [facility] who will accept transfer. (Dano Arredondo) - Lab Data Lab Results 09/27/19 09/27/19 09/27/19 Range/Units 10:17 10:25 10:25 WBC 7.8 (3.8-10.6) k/uL RBC 4.66 (4.30-5.90) m/uL Hgb 13.8 (13.0-17.5) gm/dL Hct 41.8 (39.0-53.0) % MCV 89.6 (80.0-100.0) fL MCH 29.6 (25.0-35.0) pg MCHC 33.0 (31.0-37.0) g/dL RDW 13.9 (11.5-15.5) % Plt Count 277 (150-450) k/uL Neutrophils % 76 % Lymphocytes % 8 % Monocytes % 6 % Eosinophils % 7 % Basophils % 0 % Neutrophils # 5.9 (1.3-7.7) k/uL Lymphocytes # 0.7 L (1.0-4.8) k/uL Monocytes # 0.5 (0-1.0) k/uL Eosinophils # 0.5 (0-0.7) k/uL Basophils # 0.0 (0-0.2) k/uL Sodium 133 L (137-145) mmol/L Potassium 5.1 (3.5-5.1) mmol/L Chloride 96 L (98-107) mmol/L Carbon Dioxide 25 (22-30) mmol/L Anion Gap 12 mmol/L BUN 24 H (9-20) mg/dL Creatinine 1.08 (0.66-1.25) mg/dL Est GFR (CKD-EPI)AfAm 80 (>60 ml/min/1.73 sqM) Est GFR (CKD-EPI)NonAf 69 (>60 ml/min/1.73 sqM) Glucose 107 H (74-99) mg/dL POC Glucose (mg/dL) 101 H (75-99) mg/dL POC Glu Wafer Polisher ID November Calcium 9.4 (8.4-10.2) mg/dL Total Bilirubin 0.6 (0.2-1.3) mg/dL AST 46 (17-59) U/L ALT 51 H (4-49) U/L Alkaline Phosphatase 157 H (38-126) U/L Total Protein 8.0 (6.3-8.2) g/dL Albumin 4.4 (3.5-5.0) g/dL Critical Care Time Critical Care Time: Yes Total Critical Care Time: 35 <Franki Law - Last Filed: 09/27/19 12:06> Critical Care Time: Total 35 minutes of critical care time were used initially evaluated patient, reviewed past medical history or labs, CT. This is include discussion with family, EMS. Patient CT shows evidence of hypodense lesion with vasogenic edema, Decadron was ordered along with Keppra at this time. Case discussed with [facility] Dr. Gillis who accepts transfer and did discuss case with neurosurgery. (Franki Law) Disposition Time of Disposition: 12:08 - Out of Hospital Transfer - Req. Specs Out of Hospital Transfer - Requested Specifics: Other Emergency Center ([facility]) <Franki Law - Last Filed: 09/27/19 12:06> Is patient prescribed a controlled substance at d/c from ED?: No <Dano Arredondo - Last Filed: 09/27/19 12:10> Clinical Impression: New onset seizure, Brain lesion Disposition: OTHER INSTITUTION NOT DEFINED Condition: Stable Referrals: Zuhair Martinez MD [Primary Care Provider] - 1-2 days
--- NOTE | 2019-09-27 11:16 | CT ---
EXAMINATION TYPE: CT brain wo con DATE OF EXAM: 09/27/2019 COMPARISON: None HISTORY: Seizures CT DLP: 1083.[address] of the brain was performed. 3 hyperdense lesions are noted one adjacent to the septum pellucidum measures 6 mm while the second l esion is identified within the high right frontal lobe anteriorly measuring 7 mm with mild surroundin g vasogenic edema. A third tiny lesion is noted within the high right parietal lobe measures 4.2 mm. 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 Lesions of other etiology not excluded. The ventricles, basal cisterns and sulci overlying the cerebral convexities demonstrate mild enlargem ent. There is decreased attenuation about the periventricular white matter and deep white matter of both c erebral hemispheres, compatible with chronic small vessel ischemia. Differential diagnosis does inclu de demyelination. No mass effects are seen.No midline shift. Osseous calvarium is intact. If symptoms persist consider MRI. IMPRESSION: 3 hyperdense lesions are noted one adjacent to the septum pellucidum measures 6 mm while the second l esion is identified within the high right frontal lobe anteriorly measuring 7 mm with mild surroundin g vasogenic edema. A third tiny lesion is noted within the high right parietal lobe measures 4.2 mm. 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 Lesions of other etiology not excluded.
--- NOTE | 2019-09-27 11:25 | XR ---
EXAMINATION TYPE: XR chest 1V DATE OF EXAM: 09/27/2019 COMPARISON: Prior chest x-ray 04/26/2019 HISTORY: Cough, seizure TECHNIQUE: Single frontal view of the chest is obtained. FINDINGS: Patient is rotated. Pulmonary arteries appear prominently. Aorta is dense. There is no foca l air space opacity, pleural effusion, or pneumothorax seen. The cardiac silhouette size is within n ormal limits. The osseous structures are intact. IMPRESSION: No acute process. Findings are stable accounting for differences in technique, rotation. There may be underlying pulmonary artery hypertension.
[2019-09-27] MEDS ORDERED: DEXAMETHASONE SOD PHOSPHATE 10 MG/ML 1 ML VIAL IV STA (11:31)
[2019-09-27] MEDS ORDERED: levETIRAcetam IV 1,500 MG in SALINE 1 100ML.BAG IVPB STA (11:31)
[2019-09-27 11:53] VITALS: PULSE 93
[2019-09-27 12:32] VITALS: BP 116/66
== END 2019-09-27 12:46 | disposition short-term general hospital (02) ==
LOC: EC 09:53
DX: G93.89 Other specified disorders of brain (principal); R56.9 Unspecified convulsions; G93.6 Cerebral edema; I10 Essential (primary) hypertension; I73.9 Peripheral vascular disease, unspecified; M10.9 Gout, unspecified; R40.2412 Glasgow coma scale score 13-15, at arrival to emergency department; Z87.891 Personal history of nicotine dependence; Z89.511 Acquired absence of right leg below knee; Z89.512 Acquired absence of left leg below knee; Z89.612 Acquired absence of left leg above knee; Z88.0 Allergy status to penicillin; Z79.82 Long term (current) use of aspirin; Z79.899 Other long term (current) drug therapy; Z87.01 Personal history of pneumonia (recurrent); Z86.73 Personal history of transient ischemic attack (TIA), and cerebral infarction without residual deficits
CPT/HCPCS: 36415; 94640; 93005; 80053; 85025; 71045; 70450; 99291; 96365; 96375; 96361 ×2; J1100; J1953